=== PATIENT | female | born 1995 | race Caucasian/White ===

== ENCOUNTER → 2018-07-05 14:23 | Outpatient (CLI) | payer OTHER, SELFPAY ==
--- NOTE | 2018-07-05 14:26 | US_ITS ---
STUDY: ULTRASOUND BREAST - RIGHT REASON FOR EXAM: Female, 23 years old. Palpable lump in the right breast. TECHNIQUE: Axial and longitudinal images of the RIGHT breast were performed with a high resolution ultrasound transducer. COMPARISON: None. FINDINGS: RIGHT Breast: The upper half of the breast was examined by ultrasound. There is homogeneous glandular tissue. No solid or cystic mass lesion is seen. US/Breast Complete Unilateral IMPRESSION: Unremarkable sonographic examination of the breast. ASSESSMENT CATEGORY: BIRADS Category 1: Negative. A letter regarding these results will be sent to the patient by the facility within 30 days. Electronically Signed: Ga Farfan MD at 15:54 EST , Service support ,
== END ==
PROVIDERS: Family Provider Registered Nurse; PCP Registered Nurse; Referring Provider Registered Nurse; Visit Provider Registered Nurse
DX: N63.0 Unspecified lump in unspecified breast (principal); Z80.3 Family history of malignant neoplasm of breast
CPT/HCPCS: 76641

== ENCOUNTER 2021-12-27 07:47 | Inpatient (IN) | payer BC, SELFPAY ==
[2021-12-27] VITALS (21 sets, daily range): BP systolic 112–134; BP diastolic 56–88; PULSE 63–101; RESP 16–18; TEMP 36.1–37.4; O2SAT 98–100; BMI 24.9
[2021-12-27] MEDS: Lactated Ringers 1,000 ML 50 ML IV (08:05)
[2021-12-27 08:32] LABS: Absolute Lymphocyte Count 1.12 X10^3/uL (0.83-4.51); Absolute Neutrophil Count 5.2 X10^3/uL (2.0-7.7); Basophil# 0.02 X10^3/uL; Basophil% 0.3 % (0-1); Eosinophil# 0.04 X10^3/uL; Eosinophils% 0.6 % (0-5); Hematocrit 36.3 % (37-47); Hemoglobin 11.9 g/dL (12.0-15.0); Lymphocyte # 1.12 X10^3/ul (0.83-4.51); Lymphocyte % 16.1 % (19-41); Mean Corp Hgb Conc 32.8 g/dL (32-36); Mean Corpuscular Hgb 31.6 pg (27.0-32.0); Mean Corpuscular Volume 96.3 fL (81-99); Mean Platelet Vol. 9.5 fl (6.2-12.0); Monocyte# 0.59 X10^3/uL; Monocyte% 8.5 % (0-10); NRBC Flagged by Analyzer 0 % (0-5); Neutrophil # 5.16 X10^3/uL (2.7-7.7); Neutrophil % 74.1 % (47-70); Platelet Count 157 K/mm3 (150-450); RBC Distribution Width CV 12.4 % (11.6-14.6); RBC Distribution Width SD 43.5 fl (35.1-43.9); Red Blood Count 3.77 M/mm3 (4.2-5.4)
--- NOTE | 2021-12-27 08:39 | HP.PCM.OB_ITS ---
HPI - General General Date of Admission: 12/27/21 Date of Service: 12/27/21 HPI Narrative ADAM YU, is a 26 F who presents with LOF and ctxs. Maternal Data Information Final ROSIE: 01/09/22 Gestational age: 38&1 PFSH PFS Medical History (Updated 12/27/21 @ 08:[address] Nena Dover MD) 38 weeks gestation of Medical History no medical history no medical history Allergy/AdvReac Type Severity Reaction Status Date / Time No Known Allergies Allergy Verified 12/27/21 08:04 Family History Mother Breast cancer Surgical History [place] teeth extracted Social History adopted: No household members: spouse housing: house number of children: 0 financial difficulty paying for basics: not applicable service: No current occupational status: previously employed current occupational exposures/hazards: No pets and animals: No history of recent travel: No sexually active: Yes do you think of yourself as: straight/heterosexual current gender identity: female Smoking Status: Never smoker alcohol intake: never substance use type: does not use well-balanced diet: daily or most days History Elective abortions Hx Para 0 Spontaneous abortions Hx # Term Pregnancies Ectopic pregnancies Hx # Pregnancies Multiple births # of living children NST FHR Rate Baby A Baseline: 140 Variability:: Moderate Accelerations:: 15 x 15 Decelerations:: None Uterine Activity:: Irregular, Q 3 minutes at times Vital Signs Vital Signs Vital Signs: 12/27/21 07:42 12/27/21 07:42 Pulse Rate 93 Blood Pressure 129/88 H BP Systolic 129 BP Diastolic 88 Weight Weight: 169 lb Body Mass Index (BMI) 24.9 Physical Exam Const alert and oriented x3 General Appearance: cooperative and comfortable Chest inspection of chest normal GI soft to palpation, non-tender and non-distended Inspection: gravid external exam normal Labs Labs Labs: Blood Type Pending Antibody Screen Pending Hct 36.3 % (37-47) L Hgb 11.9 g/dL (12.0-15.0) L See [facility] H&P Assessment & Plan (1) 38 weeks gestation of : COMMENT: 26yo @ 38&1 in labor PLAN: Admit to L&D Expectant management Pain - considering nitrous, declines epidural at this time GBS negative EFW - less than 4500g, patient with adequate pelvis COVID pending
--- NOTE | 2021-12-27 14:21 | OP.PCM_ITS ---
Maternal Data Information Final ROSIE: 01/09/22 Gestational age: 38&1 Vaginal Delivery Maternal Presentation Maternal Presentation: Active Labor Operative Information Date of Procedure: 12/27/21 Pre-Operative Diagnosis: (1) Labor (2) Maternal exhaustion Post-Operative Diagnosis: Same Surgery / Procedure Performed: Vacuum Assisted Vaginal Delivery Type of Anesthesia: Local with 1% Lidocaine Estimated Blood Loss: 400ml Findings Description of Procedure: Patient prepped & draped when C/C/+2. Patient had been intermittently assessed during her pushing for 3.5 hours and was making good progress but was becoming exhausted. Patient was verbally consented for a vacuum delivery. head position confirmed. Vacuum placed on the head and position of vacuum confirmed on the head. With 6 contractions the vacuum was used for good descent. There were no pop-offs. The vacuum was released & position re- confirmed on the head after each contraction. A 2nd degree episiotomy was cut after injecting lidocaine into the perineum. The patient then made good progress on her own and pushed well to deliver the head. head gently guided to allow delivery of anterior and posterior shoulders. No excess traction placed on head. Body delivered and 3VC clamped & cut in delayed fashion. Placenta delivered with gentle traction and good uterine tone obtai yazan. Presentation: OMARI Amniotic Membrane Rupture Type: Spontaneous Amniotic Fluid Description: Clear Placental Delivery Description: Expressed Placenta Disposition: [facility] Specimen(s) Removed: Placenta Cord Vessel Description: 3 Vessels Cord Entanglement: None Infant A Gender: Male (Sai) (1 minute): 8 (5 minute): 9 Delayed Cord Clamping: Yes Post Vaginal Delivery Medications Given After Delivery: IV Pitocin Episiotomy Description: Midline and 2nd degree (repaired with 3-0 vicryl) Laceration: None Complication Complications: None
[2021-12-27] MEDS: Lactated Ringers 1,000 ML 200 ML IV (15:11)
[2021-12-27] MEDS: Oxytocin 30 units/NS 500 ml 30 UNITS/500 ML IV.SOLN 334 UNITS IV (18:13)
[2021-12-27] MEDS: Ketorolac 30 MG/ML Syringe IV (19:12)
[2021-12-28] VITALS (11 sets, daily range): BP systolic 101–117; BP diastolic 58–74; PULSE 80–91; RESP 14–16; TEMP 36.7–37.1; O2SAT 98–99
[2021-12-28] MEDS: Ibuprofen 600 MG Tablet PO ×2 (08:03→21:55)
--- NOTE | 2021-12-28 09:06 | PN.OBGYN_ITS ---
Subjective Subjective Pt is doing well. She denies chest pain, shortness of breath, leg pain. She is ambulating and voiding without difficulty. Lochia is normal. She is breast- feeding and desires to work with today. She desires to stay another night. Objective Data Objective Data Vital Signs: Vital Signs Temp Pulse Resp BP Pulse Ox O2 Del Method 98.5 F 91 14 112/74 98 Room Air 12/28/21 07:45 12/28/21 07:47 12/28/21 07:45 12/28/21 07:47 12/28/21 07:47 12/28/21 07:45 Oxygen Delivery Method Room Air Weight: 169 lb Body Mass Index (BMI) 24.9 Intake & Output: Intake and Output for Last 24 Hours 12/26/21 12/27/21 12/28/21 23:59 23:59 23:59 Intake Total 2080.83 / 2080.83 Output Total 800 / 800 Balance 2080.83 / 2080.83 -800 / -800 Lab / Micro Data Result Diagrams: 12/27/21 08:03 Labs: Laboratory Results - last 24 hr 12/27/21 08:03: Blood Type A NEGATIVE, Antibody Screen TNP, Antibody Identification TNP 12/27/21 08:03: Antibody Screen NEGATIVE Micro: Microbiology 12/27/21 08:15 Nasal Secretion SARS-CoV-2 Antigen (Rapid) - Final Physical Exam Const alert and no apparent distress General Appearance: comfortable HEENT normocephalic Resp normal respiratory effort GI soft to palpation and non-tender GI Narrative: FF Extremity normal to inspection Assessment & Plan (1) Vacuum-assisted vaginal delivery: PLAN: She is doing well. Working on breast-feeding. Anticipate discharge tomorrow.
[2021-12-28] MEDS: Senna/Docusate Sodium 1 Tablet 2 TABLET PO (09:35)
[2021-12-28] MEDS: Acetaminophen 500 MG Tablet 1000 MG PO (14:13)
[2021-12-28] MEDS: Benzocaine/Lanolin/Aloe Vera 1 SPRAY EACH TOPICAL (21:55)
[2021-12-29 02:00] VITALS: BP 103/63; PULSE 69; RESP 18; TEMP 36.4; O2SAT 99
[2021-12-29 02:11] VITALS: BP 103/63; PULSE 65
[2021-12-29] MEDS: Acetaminophen 500 MG Tablet 1000 MG PO (06:45)
--- NOTE | 2021-12-29 08:06 | PCM.PN.OB ---
Subjective Subjective Patient seen at bedside. infant. Ambulating and voiding without difficulty. Pain is controlled with Motrin and Tylenol. Desires discharge home today. Objective Data Objective Data Vital Signs: Vital Signs Temp Pulse Resp BP Pulse Ox O2 Del Method 97.5 F L 65 18 103/63 99 Room Air 12/29/21 02:00 12/29/21 02:11 12/29/21 02:00 12/29/21 02:11 12/29/21 02:00 12/29/21 02:00 Oxygen Delivery Method Room Air Weight: 169 lb Body Mass Index (BMI) 24.9 Intake & Output: Intake and Output for Last 24 Hours 12/27/21 12/28/21 12/29/21 23:59 23:59 23:59 Intake Total 0.83 / 2079.83 Output Total 800 / 800 Balance 2079.83 / 2079.83 -800 / -800 Lab / Micro Data Result Diagrams: 12/27/21 08:03 Micro: Microbiology 12/27/21 08:15 Nasal Secretion SARS-CoV-2 Antigen (Rapid) - Final ROS Eyes Eyes: Denies blurry vision, change in vision or spots in vision ENT HEENT: Denies dizziness or headache(s) Cardiovascular Cardiovascular: Denies abdominal pain, chest pain or dyspnea Respiratory/Chest Respiratory/Chest: Denies cough, dyspnea, shortness of breath at rest or shortness of breath with exertion Gastrointestinal Gastrointestinal: Denies abdominal pain, diarrhea or vomiting Genitourinary Genitourinary: Denies change in urinary stream, difficulty urinating or dysuria Musculoskeletal Musculoskeletal: Reports none Integumentary Integumentary: Denies rash Neurologic Neurologic: Denies dizziness, headache(s), memory loss or weakness Physical Exam Const alert and no apparent distress General Appearance: comfortable HEENT normocephalic Resp normal respiratory effort GI soft to palpation and non-tender GI Narrative: FF Extremity normal to inspection Assessment & Plan (1) Vacuum-assisted vaginal delivery: PLAN: Plan PPD 2 VAVD Rotating ice and TUCKs to perineum Pain control support D/C home with follow up in office
--- NOTE | 2021-12-29 08:09 | DCINST_ITS ---
Discharge Instructions Diet Discharge Diet: No restrictions Activity Discharge Activity: Return to Normal Activity May resume sexual activity in: 6-8 weeks Weight Bearing Status: Weight bearing as tolerated Dressing / Incision Call your doctor if you observe: Fever of 101 or Higher, Inability to urinate, Using more than 1 pad per hour, Shortness of breath, Dizziness, Chest pain, Calf discomfort and Uncontrolled pain Follow Up Care Please Follow Up With: Nena Dover MD When: 2 weeks / 6 weeks in office Test Results: Test results from this visit will be discussed in further detail at your follow- up appointment, if applicable. Discharge Plan Admission Admit Date/Time: 12/27/21 07:47 Attending Provider: Nena Dover Primary Care Provider: Ishmael Castañeda Discharge Orders/Prescriptions Prescriptions: New acetaminophen 500 mg Tablet 1,000 mg PO Q6H PRN PRN (Reason: Pain 1-10 Or Fever) Qty: 0 0RF ibuprofen 600 mg Tablet 600 mg PO Q6H PRN PRN (Reason: Pain Score 1-3) Qty: 0 0RF Referrals / Follow Up: Ishmael Castañeda MD [Primary Care Provider] - Nena Dover MD [STAFF PHYSICIAN] - Disposition Disposition (needs filled in before D/C Order can be placed): Home, Self Care
[2021-12-29 08:28] VITALS: BP 115/76; PULSE 79; PULSE 83; O2SAT 100
[2021-12-29] MEDS: Ibuprofen 600 MG Tablet PO (08:36)
[2021-12-29] MEDS: Senna/Docusate Sodium 1 Tablet 2 TABLET PO (08:37)
[2021-12-29 08:55] VITALS: BP 115/76; PULSE 80; RESP 14; TEMP 36.4
[2021-12-29 14:35] VITALS: BP 122/78; PULSE 86
[2021-12-29 14:40] VITALS: BP 122/78; PULSE 86; RESP 16; TEMP 36.4
== END 2021-12-29 14:50 | disposition home or self-care (01) | DRG 807 ==
LOC: WPOUT 07:50 → WP 07:50
PROVIDERS: Admitting Provider Obstetrics & Gynecology; PCP Family Medicine; Visit Provider Obstetrics & Gynecology
DX: O75.81 Maternal exhaustion complicating labor and delivery (principal); Z37.0 Single live birth; O70.1 Second degree perineal laceration during delivery; Z3A.38 38 weeks gestation of pregnancy
CPT/HCPCS: 59025; 59050; 85025; 86850; 86900; 86901; 87426; 99218; J7120; G0378

== ENCOUNTER → 2022-01-14 | Outpatient (CLI) | payer BC, SELFPAY ==
[2022-01-16 10:29] LABS: Mucous, Urine 0 SEEN /hpf (<or=2+)
[2022-01-16 10:37] LABS: Color, Urine Yellow (Yellow); Glucose, Dipstick Normal (Normal); Ketone-Dipstick Negative (Negative); Leukocyte Esterase-Dipstick 500 /ul (Negative); Nitrite-Dipstick Negative (Negative); Occult Blood-Urine 250 /ul (Negative); Protein-Dipstick 30 mg/dl (Negative); Urine Bilirubin Dipstick Negative (Negative); Urine Clarity Sl. Cloudy (Clear); Urine Urobilinogen Normal (Normal)
[2022-01-16 10:44] LABS: Bacteria 1+ /hpf (None Seen); Red Blood Cells-Urine 25-50 SEEN /hpf (0-5); Squamous Epithelial Cells - UA 0-5 SEEN /hpf (5-10); White Blood Cells 25-50 SEEN /hpf (0-5)
== END | disposition home or self-care (01) ==
LOC: LABSPEC 01-16 10:17
PROVIDERS: PCP Family Medicine; Visit Provider Physician Assistant
DX: R30.9 Painful micturition, unspecified (principal)
CPT/HCPCS: 81001; 87077; 87086; 87088; 87186

== ENCOUNTER 2023-07-18 15:15 | Inpatient (IN) | payer BC, SELFPAY ==
[2023-07-18] VITALS (22 sets, daily range): BP systolic 107–132; BP diastolic 68–82; PULSE 82–104; RESP 16; TEMP 36.4–37.4; O2SAT 82–100; BMI 25.2
[2023-07-18] MEDS: Lactated Ringers 1,000 ML 100 ML IV (16:25)
[2023-07-18 16:35] LABS: Absolute Lymphocyte Count 1.37 X10^3/uL (0.83-4.51); Absolute Neutrophil Count 6.4 X10^3/uL (2.0-7.7); Basophil# 0.03 X10^3/uL; Basophil% 0.3 % (0-1); Eosinophil# 0.04 X10^3/uL; Eosinophils% 0.5 % (0-5); Hematocrit 33.9 % (37-47); Hemoglobin 10.8 g/dL (12.0-15.0); Lymphocyte # 1.37 X10^3/ul (0.83-4.51); Lymphocyte % 15.9 % (19-41); Mean Corp Hgb Conc 31.9 g/dL (32-36); Mean Corpuscular Hgb 28.1 pg (27.0-32.0); Mean Corpuscular Volume 88.3 fL (81-99); Mean Platelet Vol. 9.6 fl (6.2-12.0); Monocyte# 0.66 X10^3/uL; Monocyte% 7.7 % (0-10); NRBC Flagged by Analyzer 0 % (0-5); Neutrophil # 6.42 X10^3/uL (2.7-7.7); Neutrophil % 74.4 % (47-70); Platelet Count 195 K/mm3 (150-450); RBC Distribution Width CV 13.9 % (11.6-14.6); RBC Distribution Width SD 44.1 fl (35.1-43.9); Red Blood Count 3.84 M/mm3 (4.2-5.4); White Blood Count 8.6 K/mm3 (4.4-11.0)
--- NOTE | 2023-07-18 17:31 | PCM.HP.OB ---
HPI - General General Date of Admission: 07/18/23 HPI Narrative ADAM YU, is a 28 F at 39.3 weeks gestation who presents in spontaneous, active labor. Maternal Data Information ROSIE Calculator Estimated Delivery Date Method Current WG Current Estimate 07/22/23 Manual 39w 3d PFSH PFS Medical History (Updated 07/18/23 @ 17:34 by Kelsy Cook CNM) 38 weeks gestation of depression Vacuum-assisted vaginal delivery Home Medications docosahexaenoic acid 200 mg capsule ( DHA) mg PO 01/05/23 [History Last Taken 07/18/23] Allergy/AdvReac Type Severity Reaction Status Date / Time No Known Allergies Allergy Verified 07/18/23 15:56 Family History Mother Breast cancer Surgical History [place] teeth extracted Social History adopted: No household members: spouse housing: house number of children: 0 current occupational status: previously employed current occupational exposures/hazards: No pets and animals: No history of recent travel: No sexually active: Yes Smoking Status: Never smoker alcohol intake: never substance use type: does not use well-balanced diet: daily or most days History Elective abortions Hx Para 1 Spontaneous abortions Hx # Term Pregnancies Ectopic pregnancies Hx # Pregnancies Multiple births # of living children ROS Eyes Eyes: Denies blurry vision, change in vision or spots in vision ENT HEENT: Denies dizziness or headache(s) Cardiovascular Cardiovascular: Denies abdominal pain, chest pain or dyspnea Respiratory/Chest Respiratory/Chest: Denies cough, dyspnea, shortness of breath at rest or shortness of breath with exertion Gastrointestinal Gastrointestinal: Denies abdominal pain, diarrhea or vomiting Genitourinary Genitourinary: Denies change in urinary stream, difficulty urinating or dysuria Musculoskeletal Musculoskeletal: Reports none Integumentary Integumentary: Denies rash Neurologic Neurologic: Denies dizziness, headache(s), memory loss or weakness Psychiatric Psychiatric: Reports none Vital Signs Vital Signs Vital Signs: 07/18/23 16:07 07/18/23 16:07 07/18/23 16:07 Temperature Temperature Source Pulse Rate 82 Blood Pressure 121/79 H BP Systolic 121 BP Diastolic 79 Pulse Ox 82 07/18/23 16:07 07/18/23 16:07 07/18/23 16:30 Temperature 99.3 F H Temperature Source Temporal Pulse Rate 87 Blood Pressure BP Systolic BP Diastolic Pulse Ox 07/18/23 16:30 07/18/23 17:02 07/18/23 17:02 Temperature Temperature Source Pulse Rate 98 Blood Pressure BP Systolic BP Diastolic Pulse Ox 98 98 07/18/23 17:06 07/18/23 17:06 07/18/23 17:07 Temperature Temperature Source Pulse Rate 93 102 H Blood Pressure BP Systolic BP Diastolic Pulse Ox 90 07/18/23 17:07 07/18/23 17:23 07/18/23 17:23 Temperature Temperature Source Pulse Rate 104 H Blood Pressure BP Systolic BP Diastolic Pulse Ox 98 100 Weight Weight: 180 lb 8 oz Body Mass Index (BMI) 25.2 Physical Exam Const alert, oriented x3 and no apparent distress General Appearance: cooperative Orientation / Consciousness: awake Exam Limitations: no limitations HEENT normocephalic Head and Scalp: normal to inspection Eyes General Eye: normal appearance of both eyes Neck full ROM and no lymphadenopathy Lymph Lymphatic: no lymphadenopathy noted Chest inspection of chest normal Resp normal respiratory effort, normal air movement and clear to auscultation bilaterally Effort and Inspection: able to speak in complete sentences and symmetric chest movement Cardio regular rate and regular rhythm GI normal to inspection, nondistended, normoactive bowel sounds Manual OB Exam: presentation cephalic, dilated 7, effaced 90 and station -1 Back/Spine normal ROM Extremity full ROM and no calf tenderness Skin no rashes or lesions noted General Skin Exam: no breakdown Neuro oriented x3 and CN's II-XII intact bilaterally Psych mental status grossly normal and thought process normal Labs Labs Labs: Blood Type A NEGATIVE Antibody Screen NEGATIVE Hct 33.9 % (37-47) L Hgb 10.8 g/dL (12.0-15.0) L Syphilis Total Ab Pending GBS negative Assessment & Plan (1) 39 weeks gestation of : (2) Previous baby delivered by vacuum extraction: (3) Spontaneous onset of labor: (4) Active labor at term: (5) History of depression, currently : PLAN: Plan Admit to labor and delivery Routine labs CE /-1 AROM for clear fluid Patient desires unmedicated delivery Anticipate Dr. Jimenez notified of admission and plan of care
[2023-07-18 17:37] LABS: Syphilis Antibodies Non-reactive
[2023-07-18] MEDS: Oxytocin 15 Units/NS 250ml 15 UNITS/250 ML IV.SOLN 334 UNITS IV (18:26)
--- NOTE | 2023-07-18 18:55 | EX.PCM.OBRPT ---
Assessment & Plan (1) (spontaneous vaginal delivery): (2) Perineal laceration, second degree, delivered: (3) History of depression, currently : Maternal Data Information ROSIE Calculator Estimated Delivery Date Method Current WG Current Estimate 07/22/23 Manual 39w 3d Vaginal Delivery Maternal Presentation Maternal Presentation: Active Labor Maternal Presentation: at 39.3 weeks gestation that presented in spontaneous, active labor. Type of Induction: Amniotomy (Augmentation) Operative Information Date of Procedure: 07/18/23 Pre-Operative Diagnosis: Term gestation, spontaneous onset of labor Post-Operative Diagnosis: Same, Live male infant Surgery / Procedure Performed: Spontaneous Vaginal Delivery Type of Anesthesia: Local with 1% Lidocaine Estimated Blood Loss: 400 Time of Delivery: 18:23 Findings Description of Procedure: Patient having urge to push. In hands and knees position with maternal effort, head delivered followed by anterior shoulder and remainder of body. Compound presentation noted. Vigorous male passed through maternal legs and placed immediately skin to skin with patient. Nursing attended to . Patient repositioned in bed to lithotomy. 3 vessel cord was clamped and cut after delay by FOB. Cord blood collected. Pitocin IV started for active management of the third stage of labor. Placenta delivered spontaneously and intact. Second degree laceration repaired in usual fashion using 3-0 Vicryl Rapide after local anesthesia given. Patient tolerated well. Fundus is firm 2 below U. EBL 400 cc. APGARS 8/9. Patient and and infant bonding well at this time. Dr. Jimenez notified of delivery. Presentation: Vertex Amniotic Membrane Rupture Type: Artificial Time of Membrane Rupture: 172 Amniotic Fluid Description: Clear Placental Delivery Description: Spontaneous Placenta Disposition: [facility] Cord Vessel Description: 3 Vessels Cord Entanglement: None Infant A Gender: Male (1 minute): 8 (5 minute): 9 Delayed Cord Clamping: Yes Post Vaginal Delivery Medications Given After Delivery: IV Pitocin Episiotomy Description: None Laceration: 2nd degree Complication Complications: None
[2023-07-18] MEDS: Lidocaine 1% (20 ml mdv) 20 ML Vial INFILT (18:59)
--- OUTSIDE RECORDS SUMMARY | 2023-07-18 18:59 | XMS RPT_ITS | CCD ---
Author Name Unknown Address [address] [place] [address] Organization [facility] Care Team Providers Care Test Department Helper Name Role Phone Unavailable Primary Care Provider Unavailabl e Pcp, No Primary Care Provider Unavailabl e Unavailable Primary Care Provider Unavailonel e Garry MAZA, Anju [place] Primary Care Provider ANJU KOENIG Attending Unavailable ANJU KOENIG Primary Care Unavailable FREDERICK MARTIN Attending Unavail able RONALD NEIL Attending Unavailable KALEY GREY Referring Unavailable RONALD NEIL Attending Unavailable KELSY DIGGS Referring Unavailable FAMILIA EAMON Referring Unavailable FAMILIA, EAMON Attending Unavailable FAMILIA, EAMON Referring Unavailable FAMILIA, EAMON Referring Unavailable FAMILIA, EAMON Attending Unavailable SHONNA AGUILAR Attending Unavailable FAMILIA, EAMON Attending Unavailable KELSY DIGGS Referring Unavailable QUE, KARMON Referring Unavailable KADE LEACH Attending Unavailable FAMILIA, EAMON Attending Unavailable PLOTKELSY KING Referring Unavailable KALEY GREY Attending Unavailable FAMILIA, EAMON Attending Unavailable RONALD NEIL Attending Unavailable FREDERICK MARTIN Attending Unavail able FAMILIA EAMON Referring Unavailable KALEY GREY Attending Unavailable FAMILIA EAMON Attending Unavailable FAMILIA, EAMON Attending Unavailable Medications Current Medications Medication Drug Class(es) Dates Sig (Normalized) Sig (Original) clindamycin 300 mg oral capsule (1 source) Lincosamide Antibacterial Start: 01-09-2023 End: 01-16-2023 take 1 capsule by mouth twice daily clindamycin (CLEOCIN) 300 mg capsule Take 1 capsule by mouth twice daily for 7 days. 14 capsule 0 01/09/2023 01/16/2023 Active Completed/Discontinued Medications Medication Drug Class(es) Dates Sig (Normalized) Sig (Original) aspirin 81 mg delayed release oral tablet (5 sources) Platelet Aggregation Inhibitor, Nonsteroidal Anti-inflammatory Drug Start: 12-19-2022 End: 02-22-2023 take 2 tablets by mouth once daily aspirin, enteric coated (ASPIRIN, ENTERIC COATED) 81 mg EC tablet Take 2 tablets by mouth once daily. 30 tablet 0 12/19/2022 02/22/2023 Discontinued Problems Active Problems Problem Classification Problem Date Documented Date Episodic/Chronic Genitourinary symptoms and ill-defined conditions (2 sources) Dysuria; Translations: [Dysuria] Onset: 07-06-2023 Episodic Inflammatory diseases of female pelvic organs (1 source) Bacterial vaginosis; Translations: [Acute vaginitis] 01-09-2023 Episodic Mycoses (4 sources) Candidiasis of mouth; Translations: [Candidal stomatitis] Onset: 01-29-2023 01-29-2023 Episodic Other complications of ; puerperium affecting management of mother (3 sources) Patient encounter status; Translations: [Encounter for repeat ultrasound of pyelectasis, antepartum, single or unspecified fetus] 02-22-2023 Episodic Other complications of (2 sources) Central nervous system malformation in fetus affecting obstetrical care; Translations: [Maternal care for (suspected) central nervous system malformation in fetus, not applicable or unspecified] Episodic Other complications of (2 sources) ultrasound scan abnormal; Translations: [Maternal care for (suspected) central nervous system malformation in fetus, not applicable or unspecified] Episodic Other complications of (1 source) choroid plexus cyst; Translations: [Maternal care for (suspected) central nervous system malformation in fetus, not applicable or unspecified] Episodic Other complications of (1 source) Reduced movement; Translations: [Decreased movements, third trimester, not applicable or unspecified] Episodic Other complications of (1 source) Uterine size for dates discrepancy; Translations: [Uterine size-date discrepancy, third trimester] Episodic Other female genital disorders (1 source) Vaginal hymen finding; Translations: [Other specified noninflammatory disorders of vagina] Episodic Other female genital disorders (1 source) Old vaginal laceration; Translations: [Other specified noninflammatory disorders of vagina] Episodic Other female genital disorders (1 source) Vaginal discharge; Translations: [Other specified noninflammatory disorders of vagina] 12-19-2022 Episodic Other female genital disorders (1 source) Disorder of uterine cervix; Translations: [Other specified noninflammatory disorders of cervix uteri] 12-19-2022 Episodic Other female genital disorders (1 source) Bloodstained vaginal discharge; Translations: [Other specified noninflammatory disorders of vagina] 01-09-2023 Episodic Other and delivery including normal (20 sources) Normal ; Translations: [Encounter for supervision of normal first , second trimester] Onset: 08-24-2021 08-24-2021 Episodic Other skin disorders (1 source) Finding of pelvic region of trunk; Translations: [Granulomatous disorder of the skin and subcutaneous tissue, unspecified] Episodic Otitis media and related conditions (4 sources) Dysfunction of right eustachian tube; Translations: [Other specified disorders of Eustachian tube, right ear] Onset: 01-29-2023 01-29-2023 Episodic Residual codes; unclassified (1 source) Gestation period, 23 weeks; Translations: [23 weeks gestation of ] Episodic Residual codes; unclassified (2 sources) Gestation period, 28 weeks; Translations: [28 weeks gestation of ] Episodic Residual codes; unclassified (1 source) Gestation period, 30 weeks; Translations: [30 weeks gestation of ] Episodic Residual codes; unclassified (2 sources) Gestation period, 36 weeks; Translations: [36 weeks gestation of ] Episodic Residual codes; unclassified (1 source) Gestation period, 37 weeks; Translations: [37 weeks gestation of ] Episodic Residual codes; unclassified (1 source) Gestation period, 38 weeks; Translations: [38 weeks gestation of ] Episodic Residual codes; unclassified (1 source) Gestation period, 9 weeks; Translations: [9 weeks gestation of ] 12-19-2022 Episodic Residual codes; unclassified (1 source) Gestation period, 12 weeks; Translations: [12 weeks gestation of ] 01-09-2023 Episodic Residual codes; unclassified (1 source) Gestation period, 14 weeks; Translations: [14 weeks gestation of ] 01-23-2023 Episodic Residual codes; unclassified (2 sources) Gestation period, 18 weeks; Translations: [18 weeks gestation of ] 02-22-2023 Episodic Residual codes; unclassified (1 source) Gestation period, 22 weeks; Translations: [22 weeks gestation of ] 03-22-2023 Episodic Residual codes; unclassified (1 source) Gestation period, 26 weeks; Translations: [26 weeks gestation of ] 04-16-2023 Episodic Residual codes; unclassified (1 source) Gestation period, 31 weeks; Translations: [31 weeks gestation of ] 05-22-2023 Episodic Residual codes; unclassified (1 source) 26 weeks gestation of ; Translations: [26 weeks gestation of ] Onset: 05-01-2023 Episodic Spondylosis; intervertebral disc disorders; other back problems (1 source) Acute low back pain; Translations: [Acute left-sided low back pain without sciatica] Episodic Unclassified (1 source) Encounter for repeat ultrasound of pyelectasis, antepartum, single or unspecified fetus; Translations: [Encounter for repeat ultrasound of pyelectasis, antepartum, single or unspecified fetus] Onset: 05-01-2023 Past or Other Problems Problem Classification Problem Date Documented Date Episodic/Chronic Other complications of (20 sources) RhD negative; Translations: [Other specified related conditions, unspecified trimester] Onset: 06-07-2021 06-07-2021 Episodic Other complications of (15 sources) Spotting per vagina in ; Translations: [Spotting complicating , first trimester] Onset: 12-14-2022 Episodic Other complications of (15 sources) Finding of pattern of ; Translations: [Supervision of other high risk pregnancies, unspecified trimester] Onset: 12-14-2022 Episodic Other complications of (13 sources) H/O: depression; Translations: [History of depression, currently ] Onset: 12-14-2022 Episodic Other complications of (1 source) Spotting complicating , first trimester; Translations: [Spotting complicating , first trimester] Onset: 11-30-2022 Episodic Other female genital disorders (1 source) Other specified noninflammatory disorders of vagina; Translations: [Vaginal discharge] Onset: 12-19-2022 Episodic Other female genital disorders (1 source) Other specified noninflammatory disorders of cervix uteri; Translations: [Friable cervix] Onset: 12-19-2022 Episodic Other skin disorders (13 sources) Eruption; Translations: [Rash and other nonspecific skin eruption] Onset: 12-14-2022 Episodic Residual codes; unclassified (13 sources) History of episiotomy; Translations: [Other specified postprocedural states] Onset: 12-14-2022 Episodic Residual codes; unclassified (13 sources) FH: Congenital heart disease; Translations: [Family history of other congenital malformations, deformations and chromosomal abnormalities] Onset: 12-14-2022 Episodic Residual codes; unclassified (1 source) 9 weeks gestation of ; Translations: [9 weeks gestation of ] Onset: 12-19-2022 Episodic Residual codes; unclassified (1 source) Unspecified blood type, Rh negative; Translations: [Blood type, Rh negative] Onset: 12-19-2022 Episodic Results Test Name Value Interpretation Reference Range Facil ity Vital Signs Date Time Vital Sign Value Performing Clinician Faci litelliot 05-22-2023 13:01-0500 Body weight 76.11 kg Eamon Wilson APRN.CNM Work Phone: [facility] 05-22-2023 13:01-0500 Diastolic blood pressure 60 mm[Hg] Eamon Wilson APRN.CNM Work Phone: [facility] 05-22-2023 13:01-0500 Systolic blood pressure 104 mm[Hg] Eamon Wilson APRN.CNM Work Phone: [facility] 05-01-2023 10:22-0500 Body weight 73.48 kg Ronald Neil MD Work Phone: [facility] 05-01-2023 10:22-0500 Diastolic blood pressure 76 mm[Hg] Ronald Neil MD Work Phone: [facility] 05-01-2023 10:22-0500 Systolic blood pressure 124 mm[Hg] Ronald Neil MD Work Phone: [facility] 05-01-2023 10:02-0500 Body weight 73.57 kg Kade Leach MD Work Phone: [facility] 05-01-2023 10:02-0500 Diastolic blood pressure 76 mm[Hg] Kade Leach MD Work Phone: [facility] 05-01-2023 10:02-0500 Systolic blood pressure 124 mm[Hg] Kade Leach MD Work Phone: [facility] 04-16-2023 11:290500 Body weight 72.12 kg Eamon Familia FAMILY ENGAGEMENT SPECIALIST.CNM Work Phone: [facility] 04-16-2023 11:29-0500 Diastolic blood pressure 62 mm[Hg] Eamon Wilson FAMILY ENGAGEMENT SPECIALIST.CNM Work Phone: [facility] 04-16-2023 11:29-0500 Systolic blood pressure 108 mm[Hg] Eamon Wilson FAMILY ENGAGEMENT SPECIALIST.CNM Work Phone: [facility] 03-22-2023 [id number] Body weight 68.86 kg Shonna Aguilar MD Work Phone: [facility] 03-22-2023 11:23-0400 Diastolic blood pressure 62 mm[Hg] Shonna Aguilar MD Work Phone: [facility] 03-22-2023 11:23-0400 Systolic blood pressure 100 mm[Hg] Shonna Aguilar MD Work Phone: [facility] 02-22-2023 [id number] Body weight 66.13 kg Kaley Grey MD Work Phone: [facility] 02-22-2023 10:22-0400 Diastolic blood pressure 70 mm[Hg] Kaley Grey MD Work Phone: [facility] 02-22-2023 10:22-0400 Systolic blood pressure 102 mm[Hg] Kaley Grey MD Work Phone: [facility] 01-29-2023 13:12-0400 Body height 174 cm Anju Koenig MD Work Phone: [facility] 01-29-2023 13:12-0400 Body mass index (BMI) [Ratio] 21.19 kg/m2 Anju Koenig MD Work Phone: [facility] 01-29-2023 13:12-0400 Body weight 64.14 kg Anju Koenig MD Work Phone: [facility] 01-29-2023 13:12-0400 Diastolic blood pressure 81 mm[Hg] Anju Koenig MD Work Phone: [facility] 01-29-2023 13:12-0400 Heart rate 82 /min Anju Koenig MD Work Phone: [facility] 01-29-2023 13:12-0400 SaO2% (BldA) [Mass fraction] 99 % Anju Koenig MD Work Phone: [facility] 01-29-2023 13:12-0400 Systolic blood pressure 126 mm[Hg] Anju Koenig MD Work Phone: [facility] 01-23-2023 08:59-0400 Body weight 63.05 kg Frederick Sheriff MD Work Phone: [facility] 01-23-2023 08:59-0400 Diastolic blood pressure 62 mm[Hg] Frederick Sheriff MD Work Phone: [facility] 01-23-2023 08:59-0400 Systolic blood pressure 112 mm[Hg] Frederick Sheriff MD Work Phone: [facility] 01-09-2023 11:48-0400 Body weight 62.14 kg Ronald Neil MD Work Phone: [facility] 01-09-2023 11:48-0400 Diastolic blood pressure 70 mm[Hg] Ronald Neil MD Work Phone: [facility] 01-09-2023 11:48-0400 Systolic blood pressure 106 mm[Hg] Ronald Neil MD Work Phone: [facility] 12-19-2022 08:51-0400 Body height 176.5 cm Eamon Wilson APRN.CNM Work Phone: [facility] 12-19-2022 08:51-0400 Body weight 62.78 kg Eamon Wilson APRN.CNMirza Work Phone: [facility] 12-19-2022 08:51-0400 Diastolic blood pressure 68 mm[Hg] Eamon Wilson FAMILY ENGAGEMENT SPECIALIST.CNM Work Phone: [facility] 12-19-2022 08:51-0400 Systolic blood pressure 102 mm[Hg] Eamon Wilson FAMILY ENGAGEMENT SPECIALIST.CNM Work Phone: [facility] 04-18-2022 08:15-0500 Body weight 65.77 kg Frederick Sheriff MD Work Phone: [facility] 04-18-2022 08:15-0500 Diastolic blood pressure 72 mm[Hg] Frederick Sheriff MD Work Phone: [facility] 04-18-2022 08:15-0500 Systolic blood pressure 120 mm[Hg] Frederick Sheriff MD Work Phone: [facility] 04-06-2022 14:37-0400 Body weight 65.32 kg Kelsy Suhasvineet FAMILY ENGAGEMENT SPECIALIST.CNM Work Phone: [facility] 04-06-2022 14:37-0400 Diastolic blood pressure 78 mm[Hg] Kelsy Plotts FAMILY ENGAGEMENT SPECIALIST.CNM Work Phone: [facility] 04-06-2022 14:37-0400 Systolic blood pressure 128 mm[Hg] Kelsy Plotts FAMILY ENGAGEMENT SPECIALIST.CNM Work Phone: [facility] 02-17-2022 14:55-0400 Body weight 66.68 kg Shonna Aguilar MD Work Phone: [facility] 02-17-2022 14:55-0400 Diastolic blood pressure 70 mm[Hg] Shonna Aguilar MD Work Phone: [facility] 02-17-2022 14:55-0400 Systolic blood pressure 108 mm[Hg] Shonna Aguilar MD Work Phone: [facility] 01-13-2022 11:06-0400 Body weight 66.68 kg Frederick Sheriff MD Work Phone: [facility] 01-13-2022 11:06-0400 Diastolic blood pressure 60 mm[Hg] Frederick Sheriff MD Work Phone: [facility] 01-13-2022 11:06-0400 Systolic blood pressure 104 mm[Hg] Frederick Sheriff MD Work Phone: [facility] 12-26-2021 09:03-0400 Body weight 76.66 kg Eamon Wilson FAMILY ENGAGEMENT SPECIALIST.CNM Work Phone: [facility] 12-26-2021 09:03-0400 Diastolic blood pressure 78 mm[Hg] Eamon Wilson FAMILY ENGAGEMENT SPECIALIST.CNM Work Phone: [facility] 12-26-2021 09:03-0400 Systolic blood pressure 124 mm[Hg] Eamon Wilson FAMILY ENGAGEMENT SPECIALIST.CNM Work Phone: [facility] 12-19-2021 08:14-0400 Body weight 75.75 kg Kelsy Suhasvineet FAMILY ENGAGEMENT SPECIALIST.CNM Work Phone: [facility] 12-19-2021 08:14-0400 Diastolic blood pressure 70 mm[Hg] Kelsy Plotts FAMILY ENGAGEMENT SPECIALIST.CNM Work Phone: [facility] 12-19-2021 08:14-0400 Systolic blood pressure 116 mm[Hg] Kelsy Plotts FAMILY ENGAGEMENT SPECIALIST.CNM Work Phone: [facility] 12-13-2021 13:01-0400 Body weight 75.3 kg Aliyn Grissom MD Work Phone: [facility] 12-13-2021 13:01-0400 Diastolic blood pressure 74 mm[Hg] Ailyn Grissom MD Work Phone: [facility] 12-13-2021 13:01-0400 Systolic blood pressure 112 mm[Hg] Ailyn Grissom MD Work Phone: [facility] 11-02-2021 10:02-0400 Body weight 72.48 kg Shonna Aguilar MD Work Phone: [facility] 11-02-2021 10:02-0400 Diastolic blood pressure 70 mm[Hg] Shonna Aguilar MD Work Phone: [facility] 11-02-2021 10:02-0400 Systolic blood pressure 110 mm[Hg] Shonna Aguilar MD Work Phone: [facility] 10-19-2021 08:33-0400 Body weight 72.58 kg Shonna Aguilar MD Work Phone: [facility] 10-19-2021 08:33-0400 Diastolic blood pressure 70 mm[Hg] Shonna Aguilar MD Work Phone: [facility] 10-19-2021 08:33-0400 Systolic blood pressure 116 mm[Hg] Shonna Aguilar MD Work Phone: [facility] 09-14-2021 09:00-0400 Body weight 68.95 kg Eamon Wilson FAMILY ENGAGEMENT SPECIALIST.CNM Work Phone: [facility] 09-14-2021 09:00-0400 Diastolic blood pressure 72 mm[Hg] Eamon Wilson FAMILY ENGAGEMENT SPECIALIST.CNM Work Phone: [facility] 09-14-2021 09:00-0400 Systolic blood pressure 122 mm[Hg] Eamon Wilson FAMILY ENGAGEMENT SPECIALIST.CNM Work Phone: [facility] Encounters Encounter Date Encounter Type Care Provider Facility Start: 07-10-2023 End: 07-10-2023 ambulatory EAMON WILSON Facility:[facility] Start: 07-06-2023 End: 07-07-2023 ambulatory EAMON WILSON Facility:[facility] Start: 07-03-2023 End: 07-03-2023 ambulatory RONALD NEIL Facility:[facility] Start: 06-26-2023 End: 06-26-2023 ambulatory EAMON WILSON Facility:[facility] Start: 06-12-2023 End: 06-12-2023 ambulatory KALEY GREY Facility:[facility] Start: 06-06-2023 End: 06-06-2023 ambulatory EAMON WILSON Facility:[facility] Start: 05-22-2023 End: 05-22-2023 ambulatory EAMON WILSON Facility:[facility] Start: 05-22-2023 End: 05-22-2023 Patient encounter procedure Eamon Wilson APRN.CNM Work Phone: OB/Gynecology Procedures Date Procedure Procedure Detail Performing Clinician Start: 05-22-2023 URINE OB DIP B/O Ulices juno Familia RODRÍGUEZ Work Phone: Start: 05-01-2023 Antibody screen FREDERICK SHERIFF Plan of Treatment Date Care Activity Detail Author Start: 02-27-2046 Zoster Vaccines (1 of 2) Zoster Vaccines (1 of 2) [facility] Start: 03-04-2025 DTaP/Tdap/Td Vaccines (2 - Td or Tdap) DTaP/Tdap/Td Vaccines (2 - Td or Tdap) [facility] Start: 03-04-2025 Urine microalbumin profile DTaP,Tdap,Td Vaccine (2 - Td or Tdap) [facility] Start: 06-06-2024 PAP TESTING PAP TESTING [facility] Start: 06-06-2024 Screening for malignant neoplasm of cervix Pap Testing [facility] Start: 01-31-2024 End: 01-31-2024 Patient encounter procedure 01/31/2024 8:30 AM EDT Office Visit [facility] [address] [place] [id number] Anju Koenig MD [address] [place] [address] [phone] [facility] Start: 01-30-2024 Depression Screening Depression Screening [facility] Start: 05-27-2023 RSV Vaccine (1 - Risk 1-dose series) RSV Vaccine (1 - Risk 1-dose series) [facility] Start: 04-16-2023 End: 07-16-2023 CBC W Auto Differential panel - Blood CBC + DIFF Lab Routine 26 weeks gestation of Encounter for supervision of other normal in second trimester Expected: 04/16/2023, Expires: 07/16/2023 [facility] Work Phone: Immunizations Immunization Date Immunization Notes Care Provider Fa [facility] 05-01-2023 RHO(D) immune globul in- IV or IM Kade Leach MD Work Phone: [facility] 12-19-2022 RHO(D) immune globul in- IV or IM Eamon Wilson APRN.CN Work Phone: [facility] Work Phone: 10-19-2021 RHO(D) immune globul in- IV or IM Shonna Aguilar MD Work Phone: [facility] 09-07-2015 hepatitis B vaccine, pediatric or pediatric/adolescent dosage Anju Koenig MD Work Phone: [facility] 04-01-2015 hepatitis B vaccine, pediatric or pediatric/adolescent dosage Anju Koenig MD Work Phone: [facility] 03-04-2015 hepatitis B vaccine, pediatric or pediatric/adolescent dosage Anju Koenig MD Work Phone: [facility] 03-04-2015 tetanus toxoid, redu yeyo diphtheria toxoid, and acellular pertussis vaccine, adsorbed Anju Koenig MD Work Phone: [facility] Payers Date Payer Category Payer Unknown [employer] PPO OOS [id number] 2021-Present [phone] [facility] [id number] [place] [address] PPO [id number] 2021 Unknown [id number] 2021 Unknown [id number] Social History Date Type Detail Facility Start: 05-12-2021 End: 02-17-2022 Tobacco smoking status NHIS Never smoked tobacco [facility] Work Phone: Start: 05-12-2021 End: 02-17-2022 Tobacco use and exposure Smokeless tobacco non-user [facility] Work Phone: Start: 09-14-2021 End: 05-22-2023 Alcohol intake Lifetime non-drinker (finding) [facility] Start: 05-12-2021 History SDOH Alcohol Frequency 1 [facility] Start: 05-12-2021 Education 21 [facility] Start: 04-18-2021 [facility] Start: 1995 Sex Assigned At Not on file [facility] Start: 09-04-2021 End: 01-29-2023 Exposure to SARS-CoV-2 (event) Not sure [facility] Work Phone: Start: 12-14-2022 End: 12-19-2022 History of Social function [facility] Start: 12-14-2022 End: 12-19-2022 Tobacco use panel [facility] The thought of liliya carlin myself has occurred to me Never [facility] National Score (1-10 0), lower number is lower risk 56 [facility] Start: 01-29-2023 Alcohol intake Current non-dr bottle labeler of alcohol (finding) [facility] Health Goals Date Patient Goal Desired Activity /State Personal health goal Clinical Notes 08-29-2021 to 05-22-2023 Quick Notes - Eamon iWlson APRN.CNM - 05/22/2023 1:07 PM ESTPatient InstructionsCandi Whitley RN - 05/01/2023 11:13 AM ESTPatient InstructionsPatient InstructionsPatient Instructions Note Date & Type Note Facility 05-22-2023 Miscellaneous Notes SJ-S: [place] Torres is a 28 year old female who presents at 31w2d with ROSIE:07/22/2023, by Last Menstrual Period for a routine visit. Good FM. Denies headache, visual changes, chest pain, shortness of breath, vaginal bleeding, leakage of fluid, or dysuria. Feeling well, occasional feelings of reflux/ discomfort in chest-when laying down at bedtime. Relief by eating yogurt. O: See flow sheet Gen: No apparent distress Abd: Gravid, nontender TWG 28 lb, S=D ASSESSMENT 1. Encounter for supervision of other normal in third trimester 2. 31 weeks gestation of P: 1) PTL precautions reviewed and when to call 2) RTO 4 weeks 3) No further pylectasis or follow up 4) May try Tums, Pepcid,almonds, almond milk if reflux persists. Not eat within 30 min of bedtime. 5) RSV vaccination discussed. Is considering between 32-36 wk. 6) Encouraged to begin perineal massage at episiotomy site in preparation for labor beginning at 34 weeks. 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 I have re-performed the HPI, Physical Examination, Assessment and Plan. Eamon Wilson APRN.CNM documented in this encounter [facility] [facility] Instructions Roman Chapman Cma - 05/22/2023 1:00 PM EST SEQUENTIAL SCREENINGS The [facility] offers sequential screenings for women who are interested in screenings for chromosomal abnormalities and certain defects during a . The sequential screen combines ultrasound and blood tests to determine the risk of chromosomal abnormalities, including Down's Syndrome (Trisomy 21) and Trisomy 18, as well as open neural tube defects including spina bifida. Ultrasound examination is performed between 11 weeks and 13 weeks gestational age. Blood tests are drawn after the ultrasound and again later in the between 15 and 21 weeks gestational age. Please let your physician know if you are interested in this testing. It will require an appointment with our chemical treatment plant technician. This is not an ultrasound performed by a physician in our office during a routine visit. SIGNS AND SYMPTOMS OF LABOR 1. Contractions every 10 minutes or more often 2. Clear, pink, or brownish fluid (water) leaking from vagina 3. Feeling that baby is pushing down, pressure 4. Low, dull backache 5. Cramps that feel like a period 6. Cramps with or without diarrhea If you notice any of the above symptoms, contact our office at [phone] and ask to speak with a nurse. After hours, you can call doctors registry at [phone] OR call [facility] at [phone] and ask to have the doctor electronic calibration technician paged. If you consider this an emergency, dial 9-1- or go to your nearest emergency department. NEED HELP? Are you dealing with a violent or abusive relationship? Are you a victim of rape or sexual assult? Call [facility] ([place]) 24 hour Crisis Hotline: 478.169.2496 or 134-101-7587. MANUAL Your Guide to a Healthy manual is now on-line. Visit [email or web address] [email or web address] to download your free copy documented in this encounter [facility] 05-01-2023 Nurse Note The patient is here for an injection of Rhogam. Dose: 300 mcg Amount wasted: none. Route: Intramuscular Site: right upper quadrant gluteus Client Experience Specialist: CSL Behring See MAR The date due for the next injection is n/a Candi Whitley RN documented in this encounter [facility] 05-01-2023 Miscellaneous Notes RR- VB No. LOF No. CTXS No. Movement: present. Other c/o: No. Medication list reviewed. Physical Exam See Flow Sheet Abd: soft, nontender, gravid Ext: edema: Trace A/P 28w2d Estimated Date of Delivery: 07/22/23 Labs: 28 week labs f/u scan done today, 84%. was f/u for pylectasis. considering tdap next vsiit declines flu vaccine f/u in 2-3 weeks or prn Ronald Neil M.D. documented in this encounter [facility] 05-01-2023 Brian Chanel Ma - 05/01/2023 9:46 AM EST SEQUENTIAL SCREENINGS The [facility] offers sequential screenings for women who are interested in screenings for chromosomal abnormalities and certain defects during a . The sequential screen combines ultrasound and blood tests to determine the risk of chromosomal abnormalities, including Down's Syndrome (Trisomy 21) and Trisomy 18, as well as open neural tube defects including spina bifida. Ultrasound examination is performed between 11 weeks and 13 weeks gestational age. Blood tests are drawn after the ultrasound and again later in the between 15 and 21 weeks gestational age. Please let your physician know if you are interested in this testing. It will require an appointment with our chemical treatment plant technician. This is not an ultrasound performed by a physician in our office during a routine visit. SIGNS AND SYMPTOMS OF LABOR 1. Contractions every 10 minutes or more often 2. Clear, pink, or brownish fluid (water) leaking from vagina 3. Feeling that baby is pushing down, pressure 4. Low, dull backache 5. Cramps that feel like a period 6. Cramps with or without diarrhea If you notice any of the above symptoms, contact our office at [phone] and ask to speak with a nurse. After hours, you can call doctors registry at [phone] OR call [facility] at [phone] and ask to have the doctor electronic calibration technician paged. If you consider this an emergency, dial 8-7-2 or go to your nearest emergency department. NEED HELP? Are you dealing with a violent or abusive relationship? Are you a victim of rape or sexual assult? Call [facility] ([place]) 24 hour Crisis Hotline: 697.928.5474 or 022-901-9924. MANUAL Your Guide to a Healthy manual is now on-line. Visit [email or web address] [email or web address] to download your free copy documented in this encounter [facility] 04-16-2023 Miscellaneous Notes SJ-S: Indiana Torres is a 28 year old female who presents at 26w1d with ROSIE:07/22/2023, by Last Menstrual Period for a routine visit. Good FM. Denies headache, visual changes, chest pain, shortness of breath, vaginal bleeding, leakage of fluid, or dysuria. Feeling well, no complaints. O: See flow sheet Gen: No apparent distress Abd: Gravid, nontender ASSESSMENT/PLAN: 1. 26 weeks gestation of 2. Encounter for supervision of other normal in second trimester P: 1) PTL precautions reviewed and when to call 2) RTO 3) Rhogam next visit 4) US for follow pylectasis 5) Compression stockings for varicosities Eamon Wilson APRN.CNM documented in this encounter [facility] 04-16-2023 Instructions Eamon Wilson APRN.CNM - 04/16/2023 11:29 AM EST Magnesium citrate 400mg by mouth at bedtime SEQUENTIAL SCREENINGS [facility] offers sequential screenings for women who are interested in screenings for chromosomal abnormalities and certain defects during a . The sequential screen combines ultrasound and blood tests to determine the risk of chromosomal abnormalities, including Down's Syndrome (Trisomy 21) and Trisomy 18, as well as open neural tube defects including spina bifida. Ultrasound examination is performed between 11 weeks and 13 weeks gestational age. Blood tests are drawn after the ultrasound and again later in the between 15 and 21 weeks gestational age. Please let your physician know if you are interested in this testing. It will require an appointment with our chemical treatment plant technician. This is not an ultrasound performed by a physician in our office during a routine visit. SIGNS AND SYMPTOMS OF LABOR 1. Contractions every 10 minutes or more often 2. Clear, pink, or brownish fluid (water) leaking from vagina 3. Feeling that baby is pushing down, pressure 4. Low, dull backache 5. Cramps that feel like a period 6. Cramps with or without diarrhea If you notice any of the above symptoms, contact our office at [phone] and ask to speak with a nurse. After hours, you can call doctors registry at [phone] OR call [facility] at [phone] and ask to have the doctor electronic calibration technician paged. If you consider this an emergency, dial 9-0 or go to your nearest emergency department. NEED HELP? Are you dealing with a violent or abusive relationship? Are you a victim of rape or sexual assult? Call [facility] ([place]) 24 hour Crisis Hotline: 829.219.4484 or 668-116-7684. MANUAL Your Guide to a Healthy manual is now on-line. Visit [email or web address] [email or web address] to download your free copy documented in this encounter [facility] 03-22-2023 Miscellaneous Notes SW- Some abdominal discomfort. No vb, lof. +FM. Discussed reasons to call and MSK pain in . RTO 4 wks. Shonna Aguilar DO documented in this encounter [facility] 03-22-2023 Instructions Yolis Harris MA - 03/22/2023 11:18 AM EDT SEQUENTIAL SCREENINGS The [facility] offers sequential screenings for women who are interested in screenings for chromosomal abnormalities and certain defects during a . The sequential screen combines ultrasound and blood tests to determine the risk of chromosomal abnormalities, including Down's Syndrome (Trisomy 21) and Trisomy 18, as well as open neural tube defects including spina bifida. Ultrasound examination is performed between 11 weeks and 13 weeks gestational age. Blood tests are drawn after the ultrasound and again later in the between 15 and 21 weeks gestational age. Please let your physician know if you are interested in this testing. It will require an appointment with our chemical treatment plant technician. This is not an ultrasound performed by a physician in our office during a routine visit. SIGNS AND SYMPTOMS OF LABOR 1. Contractions every 10 minutes or more often 2. Clear, pink, or brownish fluid (water) leaking from vagina 3. Feeling that baby is pushing down, pressure 4. Low, dull backache 5. Cramps that feel like a period 6. Cramps with or without diarrhea If you notice any of the above symptoms, contact our office at [phone] and ask to speak with a nurse. After hours, you can call doctors registry at [phone] OR call [facility] at [phone] and ask to have the doctor electronic calibration technician paged. If you consider this an emergency, dial or go to your nearest emergency department. NEED HELP? Are you dealing with a violent or abusive relationship? Are you a victim of rape or sexual assult? Call [facility] ([place]) 24 hour Crisis Hotline: 182.367.5042 or 892-001-0289. MANUAL Your Guide to a Healthy manual is now on-line. Visit [email or web address] [email or web address] to download your free copy documented in this encounter [facility] 02-22-2023 Miscellaneous Notes KJ - No VB/LOF/ctxs. Reports some FM. A&P: Anatomy US today renal pyelectasis - follow up US ordered and will schedule once final US read available Kaley Grey MD documented in this encounter [facility] 02-22-2023 Instructions Masters Lizbeth Dominguez - 02/22/2023 10:17 AM EDT SEQUENTIAL SCREENINGS The [facility] offers sequential screenings for women who are interested in screenings for chromosomal abnormalities and certain defects during a . The sequential screen combines ultrasound and blood tests to determine the risk of chromosomal abnormalities, including Down's Syndrome (Trisomy 21) and Trisomy 18, as well as open neural tube defects including spina bifida. Ultrasound examination is performed between 11 weeks and 13 weeks gestational age. Blood tests are drawn after the ultrasound and again later in the between 15 and 21 weeks gestational age. Please let your physician know if you are interested in this testing. It will require an appointment with our chemical treatment plant technician. This is not an ultrasound performed by a physician in our office during a routine visit. SIGNS AND SYMPTOMS OF LABOR 1. Contractions every 10 minutes or more often 2. Clear, pink, or brownish fluid (water) leaking from vagina 3. Feeling that baby is pushing down, pressure 4. Low, dull backache 5. Cramps that feel like a period 6. Cramps with or without diarrhea If you notice any of the above symptoms, contact our office at [phone] and ask to speak with a nurse. After hours, you can call doctors registry at [phone] OR call [facility] at [phone] and ask to have the doctor electronic calibration technician paged. If you consider this an emergency, dial 9--4 or go to your nearest emergency department. NEED HELP? Are you dealing with a violent or abusive relationship? Are you a victim of rape or sexual assult? Call [facility] ([place]) 24 hour Crisis Hotline: 546.222.6512 or 371-082-8095. MANUAL Your Guide to a Healthy manual is now on-line. Visit [email or web address] [email or web address] to download your free copy documented in this encounter [facility] 01-29-2023 Evaluation + Plan note Associated Problem(s): Dysfunction of right eustachian tube Recommended that if she does not need to use any medications that would be good but if she does get to the point where it is bothering her too much she can try some Sudafed which should be safe in . [facility] 01-29-2023 Miscellaneous Notes Associated Problem(s): Dysfunction of right eustachian tube Recommended that if she does not need to use any medications that would be good but if she does get to the point where it is bothering her too much she can try some Sudafed which should be safe in . Associated Problem(s): Oral candidiasis Currently seems to be improved, she is to use the nystatin for couple more days then stop it. documented in this encounter [facility] 01-29-2023 Evaluation + Plan note Associated Problem(s): Oral candidiasis Currently seems to be improved, she is to use the nystatin for couple more days then stop it. [facility] 01-29-2023 History of Presen t illness Narrative Patient verified by last name and date of . Images from the original note were not included. 01/29/2023 Indiana Torres (: 1995) is a 27 y.o. female , Established patient, here for evaluation of the following chief complaint(s): New Patient, Ear Fullness (Seems always get plugged when ), Thrush (Has been on medication for about a week but is not any better ), Heartburn (But not sure if from ), and Health Maintenance (Hep c or hiv screening- refuse/Covid vaccine- not done/Mmr vaccine- done as child/Varicella vaccine- had chicken pox /Hpv vaccine- not done/Pap- current sees [facility] ) ASSESSMENT/PLAN: 1. Annual physical exam 2. Dysfunction of right eustachian tube Assessment & Plan: Recommended that if she does not need to use any medications that would be good but if she does get to the point where it is bothering her too much she can try some Sudafed which should be safe in . 3. Oral candidiasis Assessment & Plan: Currently seems to be improved, she is to use the nystatin for couple more days then stop it. Follow up in about 1 year (around 01/30/2024). SUBJECTIVE/OBJECTIVE: AGUSTO Dickens comes in today to establish as a new patient, she would like an annual exam and she has a couple of issues that she would like looked at. She is 15 weeks and she says she does get heartburn and she thinks it may be from the . Suggested Pepcid Complete when she needs it. She also said that she had been on 3 different antibiotics for bacterial vaginosis, MetroGel, Flagyl and some other antibiotic that she is not sure what it was and she says she developed thrush she has been on nystatin swish and swallow for about a week and was told she would have to be for a month. This was given to her at [facility]. Her last complaint is that her right ear feels plugged most the time if she pushes below the ear and will help to relieve it and then we will recur and she is not sure whether that is due to her also since it seems to have started shortly after she was. And she had the same thing with her previous . Review of Systems Constitutional: Negative for chills and fever. Respiratory: Negative for shortness of breath. Cardiovascular: Negative for chest pain and palpitations. Gastrointestinal: Negative for abdominal pain, blood in stool, constipation and diarrhea. Genitourinary: Negative for dysuria, frequency, hematuria and urgency. Neurological: Negative for weakness and numbness. Psychiatric/Behavioral: Negative for dysphoric mood. The patient is not nervous/anxious. Vitals: 01/29/23 1312 BP: 126/81 Pulse: 82 SpO2: 99% Weight: 141 lb 6.4 oz (64.1 kg) Height: 5' 8.5 (1.74 m) Physical Exam Vitals and nursing note reviewed. Constitutional: General: She is not in acute distress. Appearance: Normal appearance. HENT: Head: Normocephalic. Right Ear: Tympanic membrane, ear canal and external ear normal. Left Ear: Tympanic membrane, ear canal and external ear normal. Mouth/Throat: Mouth: Mucous membranes are moist. Pharynx: Oropharynx is clear. Eyes: Extraocular Movements: Extraocular movements intact. Pupils: Pupils are equal, round, and reactive to light. Cardiovascular: Rate and Rhythm: Normal rate and regular rhythm. Heart sounds: Normal heart sounds. No murmur heard. Pulmonary: Effort: Pulmonary effort is normal. Breath sounds: Normal breath sounds. Abdominal: General: Bowel sounds are normal. Palpations: Abdomen is soft. Comments: Gravid abdomen Musculoskeletal: General: Normal range of motion. Cervical back: Normal range of motion. Lymphadenopathy: Cervical: No cervical adenopathy. Skin: General: Skin is warm and dry. Neurological: General: No focal deficit present. Mental Status: She is alert and oriented to person, place, and time. Psychiatric: Mood and Affect: Mood normal. An electronic signature was used to authenticate this note. Anju Koenig MD 01/29/2023 2:37 PM documented in this encounter [facility] 01-23-2023 Miscellaneous Notes DM- Pt doing well today. Denies Vaginal Bleeding, Leaking fluid, or contractions. Pt reports good movement. Being treated for Thrush but doesn't feel it is gone completely. Has been treated for BV multiple times during - still has some discharge, no burning, no itching or odor. Recommend- OTC vaginal probiotic and condom us for remainder of . Will reswab next week if still has discharge. RTO 4 weeks for anatomy us. Frederick Garcia MD documented in this encounter [facility] 01-23-2023 Instructions Ignacia Adler Ma 01/23/2023 8:57 AM EDT SEQUENTIAL SCREENINGS The [facility] offers sequential screenings for women who are interested in screenings for chromosomal abnormalities and certain defects during a . The sequential screen combines ultrasound and blood tests to determine the risk of chromosomal abnormalities, including Down's Syndrome (Trisomy 21) and Trisomy 18, as well as open neural tube defects including spina bifida. Ultrasound examination is performed between 11 weeks and 13 weeks gestational age. Blood tests are drawn after the ultrasound and again later in the between 15 and 21 weeks gestational age. Please let your physician know if you are interested in this testing. It will require an appointment with our chemical treatment plant technician. This is not an ultrasound performed by a physician in our office during a routine visit. SIGNS AND SYMPTOMS OF LABOR 1. Contractions every 10 minutes or more often 2. Clear, pink, or brownish fluid (water) leaking from vagina 3. Feeling that baby is pushing down, pressure 4. Low, dull backache 5. Cramps that feel like a period 6. Cramps with or without diarrhea If you notice any of the above symptoms, contact our office at [phone] and ask to speak with a nurse. After hours, you can call doctors registry at [phone] OR call [facility] at [phone] and ask to have the doctor electronic calibration technician paged. If you consider this an emergency, dial 5-1-5 or go to your nearest emergency department. NEED HELP? Are you dealing with a violent or abusive relationship? Are you a victim of rape or sexual assult? Call [facility] ([place]) 24 hour Crisis Hotline: 776.999.2983 or 948-808-9945. MANUAL Your Guide to a Healthy manual is now on-line. Visit [email or web address] [email or web address] to download your free copy documented in this encounter [facility] 01-09-2023 Miscellaneous Notes Addended by: RONALD NEIL on: 01/09/2023 02:10 PM Modules accepted: Orders Addended by: BRIAN PARK MA on: 01/09/2023 01:47 PM Modules accepted: Orders Addended by: BRIAN PARK MA on: 01/09/2023 01:25 PM Modules accepted: Orders RR- VB No. LOF No. CTXS No. Movement: absent. Other c/o: still w/ vaginal irritatio and discharge and just finished metrogel, took oral metronidaole earlier in December 2022. Did not have these issues before this or with last . No change in partners. Some external and internal irritation. Spone blood tinged discharge intermittently Medication list reviewed. Physical Exam See Flow Sheet Abd: soft, nontender, gravid : external genitalia: normal, vagina: pink, ruggated, discharge: odorless, clear, white, yellow, adherent, and blood: absent, cervix: closed A/P 12w2d Estimated Date of Delivery: 07/22/23 Labs: just vaginal swab today treat w/ clinda use condoms for next couple of weeks until resolved. Ronald Neil M.D. documented in this encounter [facility] 01-09-2023 Instructions Brian Park Ma - 01/09/2023 11:44 AM EDT SEQUENTIAL SCREENINGS The [facility] offers sequential screenings for women who are interested in screenings for chromosomal abnormalities and certain defects during a . The sequential screen combines ultrasound and blood tests to determine the risk of chromosomal abnormalities, including Down's Syndrome (Trisomy 21) and Trisomy 18, as well as open neural tube defects including spina bifida. Ultrasound examination is performed between 11 weeks and 13 weeks gestational age. Blood tests are drawn after the ultrasound and again later in the between 15 and 21 weeks gestational age. Please let your physician know if you are interested in this testing. It will require an appointment with our chemical treatment plant technician. This is not an ultrasound performed by a physician in our office during a routine visit. SIGNS AND SYMPTOMS OF LABOR 1. Contractions every 10 minutes or more often 2. Clear, pink, or brownish fluid (water) leaking from vagina 3. Feeling that baby is pushing down, pressure 4. Low, dull backache 5. Cramps that feel like a period 6. Cramps with or without diarrhea If you notice any of the above symptoms, contact our office at [phone] and ask to speak with a nurse. After hours, you can call doctors registry at [phone] OR call [facility] at [phone] and ask to have the doctor electronic calibration technician paged. If you consider this an emergency, dial 9--3 or go to your nearest emergency department. NEED HELP? Are you dealing with a violent or abusive relationship? Are you a victim of rape or sexual assult? Call [facility] ([place]) 24 hour Crisis Hotline: 998.835.6252 or 003-898-8780. MANUAL Your Guide to a Healthy manual is now on-line. Visit [email or web address] to download your free copy documented in this encounter [facility] 01-09-2023 Miscellaneous Notes Patient given an appointment for today. Candi Whitley RN Patient's next ob appointment is 01/15/2023 documented in this encounter [facility] 01-01-2023 Note HNO ID: [id number] Author: Frederick Martin MD Service: ? Author Type: Physician Type: Progress Notes Filed: 01/01/2023 4:37 PM Note Text: Indiana Torres is a 27 year old female who presents for concerns regarding vaginal infection/irritation. Pt reports was treated for BV but still feels irritated. Pt reports no odor but states burning, more pain on back part of vaginal area and feels swollen. Pt reports no changes in soaps or detergents. No concerns for stds. No fever. No other concerns. 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 History Comments: Sexual Activity: Yes; Male Contraception: No contraception data on record PAST MEDICAL HISTORY Diagnosis Date breast lump 2018 depression PAST SURGICAL HISTORY Procedure Laterality Date PAST SURGICAL HISTORY OF wisdom teeth PAST SURGICAL HISTORY OF Granulation tissue at site of ob laceration removed FAMILY HISTORY Problem Relation Age of Onset Breast Cancer Mother Skin Cancer Father No Known Problems Sister No Known Problems Brother No Known Problems Brother other (eye issues) Maternal Grandmother No Known Problems Maternal Grandfather Skin Cancer Paternal Grandmother Skin Cancer Paternal Grandfather No Known Problems Son Social History Tobacco Use Smoking status: Never Smokeless tobacco: Never Vaping Use Vaping Use: Never used Substance Use Topics Alcohol use: Never Drug use: Never Current Outpatient Medications Medication Sig clotrimazole-betamethasone (LOTRISONE) cream Apply 1 application to affected area twice daily. aspirin, enteric coated (ASPIRIN, ENTERIC COATED) 81 mg EC tablet Take 2 tablets by mouth once daily. multivitamin (CLASSIC ) 28 mg iron- 800 mcg tab(s) Take 1 tablet by mouth once daily. No current facility-administered medications for this visit. Allergies As of Date: 01/01/2023 (No Known Allergies) Fully Assessed 01/01/2023 REVIEW OF SYSTEMS Abdomen: no pain Bladder: no dysuria but hurts when urine touches tissues.. Expanded ROS: no fever Allergies and current medication updated:Yes EXAM: BP 110/62 Wt 139 lb (63.1kg) LMP 10/15/2022 GENERAL: pleasant, female in no apparent distress HEENT: Normocephalic and atraumatic NECK: full range of motion PELVIC: external genitalia normal, normal Bartholin's glands, urethra, [place]'s glands, no cervical lesions, good vaginal support, physiologic discharge present, normal appearing perineal body and perianal region, small excoriation at posterior fourchette. NEURO: alert and oriented x3,exam grossly non-focal ASSESSMENT AND PLAN: Encounter Diagnosis ICD-10-CM 1. Vaginal irritation N89.8 CAMMY/TRICHOMONAS NAAT BACTERIAL VAGINOSIS NAAT 2. 11 weeks gestation of Z3A.11 URINE OB DIP B/O 3. Vulvar and vaginal hygiene reviewed. Lotrisone ordered. Medical Decision Making: Problems: Low: Acute, uncomplicated illness or injury Data: Unique test(s) ordered: 2 Risk: Moderate: Drug management Medical Decision Making Level: 3 - Low Frederick Garcia MD [facility] 12-19-2022 Note HNO ID: [id number] Author: Eamon Wilson APRN.CASANDRA Service: ? Author Type: Catheterization Laboratory Technician Type: Progress Notes Filed: 12/19/2022 5:44 PM Note Text: INITIAL OB ASSESSMENT OB Provider: Eamon Wilson APRN CNM HPI: [place] is a 27 year old White here to establish Obstetrical Care. Patient's last menstrual period was 10/15/2022 (approximate). from OB Dating Form. Cycles regular was planned Complaints: Some spotting OB History T1 L1 SAB0 IAB0 Ectopic0 Multiple0 Live Births1 Previous history: Prior : never History of 4th degree laceration: No History of shoulder dystocia: No History of Hypertensive disorders including pre-eclampsia, chronic hypertension or gestational hypertension: No History of gestational diabetes: No Patient's Risk Screening for delivery: None MEDICAL/PSYCHOSOCIAL HISTORY: History of hemorrhage or bleeding concerns: No Thyroid Disease: No History of chronic hypertension: No History of pre-existing diabetes: No ABO/RH(D) Date Value Ref Range Status 06/06/2021 A NEGATIVE Final BMI 20.15 kg/(m2) History of abnormal pap: No Prior treatment for cervical dysplasia: none. History of STDs: None Tobacco use: No Caffeine use: Yes - coffee Drug use: No Alcohol use: No Multivitamin with Folic acid: Yes Sabianist or heritage: No Would refuse blood transfusion if medically necessary: No Are you currently employed? No Do you have any history of depression, anxiety, PTSD, eating disorders or other mood problems: No Do you have any safety concerns or history of traumatic events that you would like to discuss with your provider: No How often does this describe you? I don't have enough money to pay my bills: Never Within the past 12 months, have you worried that your food would run out before you had money to buy more: Never In the past 12 months, has lack of reliable transportation kept you from going to medical appointments or work, or from keeping things needed for daily living: Never In the past 12 months, have you had any concerns about having a place to live, or about the condition or quality of your housing: Never Are there any cultural or spiritual needs we should be aware of: No Depression: denies symptoms of depression. OB Depression and Anxiety Screening- This Encounter (since 12/18/2022) Over the past 2 weeks have you felt down, depressed, or hopeless? Negative Over the past two weeks, have you felt little interest or pleasure in doing things?? Negative Feeling nervous, anxious or on edge 0-Not at all Not being able to stop or control worrying 0-Not al all Anxiety Pre-Screening Total (If >/= 3 additional questions will be reviewed) 0 GENETIC SCREENING: Partner present: Yes Patient verbalized knowledge of partner family health history: Yes Do you or your partner have any personal or family history of defects not previously discussed: No Do you have history of a complicated by anomaly, genetic condition, or demise: No Marital Status: Partner: Name: Buster Age: 21 Occupation: [employer] Gender: Male History of STDs: None PAST MEDICAL HISTORY Diagnosis Date breast lump 2018 depression PAST SURGICAL HISTORY Procedure Laterality Date PAST SURGICAL HISTORY OF wisdom teeth PAST SURGICAL HISTORY OF Granulation tissue at site of ob laceration removed Current Outpatient Medications Medication Sig Dispense Refill multivitamin (CLASSIC ) 28 mg iron- 800 mcg tab(s) Take 1 tablet by mouth once daily. No current facility-administered medications for this visit. Allergies As of Date: 12/19/2022 (No Known Allergies) Fully Assessed 12/14/2022 Does patient have penicillin allergy: No REVIEW OF SYSTEMS: GENERAL: Negative for: Fever or Chills HEENT: Negative for: Headache, Impaired Vision, Ringing in Ears, Nosebleeds NECK: Negative for: Swelling, Pain, Stiffness RESPIRATORY: Negative for: Cough, Shortness of breath, Wheezing GASTROINTESTINAL: Negative for: Heartburn, Constipation, Diarrhea, Blood in stool, Vomiting MUSCULOSKELETAL: Negative for: Muscle or joint pain, stiffness, Joint swelling NEUROLOGIC/PSYCHIATRIC: Negative for: Weakness, Paralysis, Numbness, Tingling, Tremor, Anxiety, Depression, Memory loss SKIN: Negative for: Rash, Itching GENITOURINARY: Negative for: vaginal itching, vaginal discharge, hematuria or dysuria PHYSICAL EXAM: BP 102/68 Ht 5' 9.5 (1.77m) Wt 138 lb 6.4 oz (62.8kg) LMP 10/15/2022 BMI 20.15 kg/(m2). GENERAL: pleasant in no apparent distress DERMATOLOGY: Normal, without lesions, non-icteric, and non-hirsute NECK: Supple, full range of motion, no adenopathy, and thyroid normal CHEST: Normal inspiratory effort BREAST: soft, non-tender, symmetric, no dominant mass, normal nipple-areolar (more content not included)... [facility] 12-19-2022 Note HNO ID: [id number] Author: Eamon Wilson APRN.CNM Service: ? Author Type: Catheterization Laboratory Technician Type: Progress Notes Filed: 12/20/2022 4:21 PM Note Text: [facility] 12-19-2022 History of Presen t illness Narrative INITIAL OB ASSESSMENT OB Provider: Eamon Wilson APRN CNM HPI: [place] is a 27 year old White here to establish Obstetrical Care. Patient's last menstrual period was 10/15/2022 (approximate). from OB Dating Form. Cycles regular was planned Complaints: Some spotting OB History T1 L1 SAB0 IAB0 Ectopic0 Multiple0 Live Births1 Previous history: Prior : never History of 4th degree laceration: No History of shoulder dystocia: No History of Hypertensive disorders including pre-eclampsia, chronic hypertension or gestational hypertension: No History of gestational diabetes: No Patient's Risk Screening for delivery: None MEDICAL/PSYCHOSOCIAL HISTORY: History of hemorrhage or bleeding concerns: No Thyroid Disease: No History of chronic hypertension: No History of pre-existing diabetes: No ABO/RH(D) Date Value Ref Range Status 06/06/2021 A NEGATIVE Final BMI 20.15 kg/(m^2) History of abnormal pap: No Prior treatment for cervical dysplasia: none. History of STDs: None Tobacco use: No Caffeine use: Yes - coffee Drug use: No Alcohol use: No Multivitamin with Folic acid: Yes Sabianist or heritage: No Would refuse blood transfusion if medically necessary: No Are you currently employed? No Do you have any history of depression, anxiety, PTSD, eating disorders or other mood problems: No Do you have any safety concerns or history of traumatic events that you would like to discuss with your provider: No How often does this describe you? I don't have enough money to pay my bills: Never Within the past 12 months, have you worried that your food would run out before you had money to buy more: Never In the past 12 months, has lack of reliable transportation kept you from going to medical appointments or work, or from keeping things needed for daily living: Never In the past 12 months, have you had any concerns about having a place to live, or about the condition or quality of your housing: Never Are there any cultural or spiritual needs we should be aware of: No Depression: denies symptoms of depression. OB Depression and Anxiety Screening- This Encounter (since 12/18/2022) Over the past 2 weeks have you felt down, depressed, or hopeless? Negative Over the past two weeks, have you felt little interest or pleasure in doing things? Negative Feeling nervous, anxious or on edge 0-Not at all Not being able to stop or control worrying 0-Not al all Anxiety Pre-Screening Total (If >/= 3 additional questions will be reviewed) 0 GENETIC SCREENING: Partner present: Yes Patient verbalized knowledge of partner family health history: Yes Do you or your partner have any personal or family history of defects not previously discussed: No Do you have history of a complicated by anomaly, genetic condition, or demise: No Marital Status: Partner: Name: Buster Age: 21 Occupation: [employer] Gender: Male History of STDs: None PAST MEDICAL HISTORY Diagnosis Date breast lump 2018 depression PAST SURGICAL HISTORY Procedure Laterality Date PAST SURGICAL HISTORY OF wisdom teeth PAST SURGICAL HISTORY OF Granulation tissue at site of ob laceration removed Current Outpatient Medications Medication Sig Dispense Refill multivitamin (CLASSIC ) 28 mg iron- 800 mcg tab(s) Take 1 tablet by mouth once daily. No current facility-administered medications for this visit. Allergies As of Date: 12/19/2022 (No Known Allergies) Fully Assessed 12/14/2022 Does patient have penicillin allergy: No REVIEW OF SYSTEMS: GENERAL: Negative for: Fever or Chills HEENT: Negative for: Headache, Impaired Vision, Ringing in Ears, Nosebleeds NECK: Negative for: Swelling, Pain, Stiffness RESPIRATORY: Negative for: Cough, Shortness of breath, Wheezing GASTROINTESTINAL: Negative for: Heartburn, Constipation, Diarrhea, Blood in stool, Vomiting MUSCULOSKELETAL: Negative for: Muscle or joint pain, stiffness, Joint swelling NEUROLOGIC/PSYCHIATRIC: Negative for: Weakness, Paralysis, Numbness, Tingling, Tremor, Anxiety, Depression, Memory loss SKIN: Negative for: Rash, Itching GENITOURINARY: Negative for: vaginal itching, vaginal discharge, hematuria or dysuria PHYSICAL EXAM: BP 102/68 Ht 5' 9.5 (1.77m) Wt 138 lb 6.4 oz (62.8kg) LMP 10/15/2022 BMI 20.15 kg/(m^2). GENERAL: pleasant in no apparent distress DERMATOLOGY: Normal, without lesions, non-icteric, and non-hirsute NECK: Supple, full range of motion, no adenopathy, and thyroid normal CHEST: Normal inspiratory effort BREAST: soft, non-tender, symmetric, no dominant mass, normal nipple-areolar complex, no lymphadenopathy, and no nipple discharge ABDOMEN: soft, non-tender, and no masses NEURO: alert and oriented x3,exam grossly non-focal PELVIS: External genitalia normal without lesions. Perineal body intact. No vaginal or cervical lesions. Cervix closed. Uterus 9 week size. No adnexal masses or tenderness. Clinical Pelvimetry: Pelvimetry clinically assessed as adequate Limited OB ultrasound exam: not performed OB Risk Screening: Completed, no positive findings documented. ASSESSMENT: 27 year old at 9w2d wks gestational age PLAN: 1) Patient oriented to practice. Discussed nutrition, folic acid supplementation, dietary guidelines, exercise, smoking, alcohol, caffeine, and drug use. Discussed gestational weight gain guidelines. Discussed routine OB labs including STD/HIV. Discussed aneuploidy and carrier screening. Regarding aneuploidy screening, nuchal translucency/first trimester early anatomy ultrasound and NIPT were discussed. Regarding carrier screening, the myriad screen was discussed. The risks/benefits and limitations of NIPT/aneuploidy screening were reviewed including the potential for false negative and false positive results. We discussed the availability of professional-society guided carrier screening and reviewed the conditions screened and limitations of screening. The availability of genetic counseling was reviewed. Information on aneuploidy/carrier screening was provided. The patient chooses: Aneuploidy screening: declines screening and Carrier screening: Declines Discussed hemoglobin electrophoresis. Patient: Accepts 2) Still having some spotting, will give rhogam today after type and screen 3) Son will be one on December 27, close interval . Follow up in 4 weeks or sooner prn. Eamon Wilson APRN.CNM documented in this encounter [facility] 12-19-2022 Instructions Eamon Wilson APRN.CNM - 12/19/2022 8:41 AM EDT Please select the following link to access the [facility] Your Guide to a Healthy . [email or web address] Aspirin 162mg by mouth once daily after 12 weeks (take 2 of the 81mg tablets documented in this encounter [facility] 12-14-2022 Note HNO ID: [id number] Author: Sherron Padron RN Service: ? Author Type: ? Type: Progress Notes Filed: 12/14/2022 5:34 PM Note Text: # 1 - Date: 12/27/21, Sex: Male, Weight: 8 lb 8 oz (3.856 kg), GA: 38w1d, Delivery: Vaginal, Vacuum (Extractor), Apgar1: None, Apgar5: None, Living: Living, Comments: Midline and 2nd degree Episiotomy- Granulation tissue at site of ob laceration removed # 2 - Date: None, Sex: None, Weight: None, GA: None, Delivery: None, Apgar1: None, Apgar5: None, Living: None, Comments: None [facility] 12-14-2022 Miscellaneous Notes DISTANCE HEALTH VISIT This Team Access Model visit is a phone encounter. It required patient-provider interaction for the medical decision making as documented below. [place] Torres is a 27 year old female seen for PNOB visit. Patient complained of spotting November 03. Quantitative hCGs were drawn. Patient states she continues to spot but it is now and ranges color when I wipe . Patient denies any pain. Miscarriage precautions given. Patient has an ultrasound scheduled for today. Patient delivered her previous child December 27, 2021.Pt has a history of depression that lasted about 2 months. She she did not take any medication to treat it.. Discussed increased risks of depression during and and importance of reporting the development or worsening of symptoms should they occur. Pt denies ever having any suicidal thoughts or tendencies or thoughts of hurting others. Patient has a history of midline and second-degree episiotomy. She has a history of granulation tissue at the site of the OB laceration removed. Patient is Rh-. She is a RhoGAM candidate. Patient states she has had a rash for about a month. She questions if it might be ringworm. I have advised her to see her PCP or customer resolution specialist as soon as possible. Patient has a first cousin born with a hole in the heart. Corrective surgery was done. Patient declines aneuploidy screening and genetic carrier screening testing.Sherron Padron RN documented in this encounter [facility] 12-14-2022 History of Presen t illness Narrative # 1 - Date: 12/27/21, Sex: Male, Weight: 8 lb 8 oz (3.856 kg), GA: 38w1d, Delivery: Vaginal, Vacuum (Extractor), Apgar1: None, Apgar5: None, Living: Living, Comments: Midline and 2nd degree Episiotomy- Granulation tissue at site of ob laceration removed # 2 - Date: None, Sex: None, Weight: None, GA: None, Delivery: None, Apgar1: None, Apgar5: None, Living: None, Comments: None documented in this encounter [facility] 12-04-2022 Miscellaneous Notes Patient notified and voiced understanding. Will get repeat blood work today. New OB appointment rescheduled and ultrasound scheduled. Bleeding precautions reviewed. Ursula Conley RN Please see result note. Follow up quant ordered. Please assist with scheduling NOB sooner with ultrasound if possible. Orders placed. Kelsy Diggs APRN.CNM Patient calling with concerns of ongoing spotting of pink to brown. Spotting is mostly when wiping, but will also be on her panty liner. Patient is a , LMP is 10/15/22 making her approximately 7w1d. Patient originally sent a [employer] message on 11/30 in regards to having pink spotting and cramping and HCG levels were ordered and she had a level drawn on 11/30. hCG Quantitative, Blood (mIU/mL) Date Value 11/30/2022 22,803.0 Patient was never notified of result and repeat level was never drawn. According to file patients blood type is A-. Patient still having occasional generalized abdominal cramping that she rates at a 1 out of 10. Patient has PNOB on 12/14, but does not have New OB until 01/08-patient will be 12 weeks at that time. Patient concerned with ongoing spotting. Do you want patient to repeat her quant level? New OB appointment will need to be rescheduled to a sooner date. Ursula Conley RN documented in this encounter [facility] 11-30-2022 Miscellaneous Notes Pt notified. Edel Huertas LPN HCG levels ordered. Please notify patient to have drawn. Please review bleeding precautions as well. Kelsy Diggs APRN.CNM Please see the pt's mychart message. LMP 10/15/22, advise on early ob with spotting. Edel Huertas LPN documented in this encounter [facility] 04-18-2022 History of Presen t illness Narrative [place] Torres is a 27 year old female who presents for problem visit skin tag in vaginovulvar area following vaginal HPI: Patients presetns today for evaluation of a skin tag in vaginovulvar area following vaginal . Patient states that mid wives made her aware of a piece of skin in the posterior part of the vaginal area. She says the pain was mild at first and has now diseapeard. It was bleeding at first and now is only bleeding minimally. It is not causing any distress for the patient. 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 History LMP: 04/04/2021 (Approximate), Unknown Age at Menarche: Age at First : Age at Menopause: Human Performance Consultant History Comments: Sexual Activity: Yes; Male Contraception: No contraception data on record PAST MEDICAL HISTORY Diagnosis Date breast lump 2018 PAST SURGICAL HISTORY Procedure Laterality Date PAST SURGICAL HISTORY OF wisdom teeth FAMILY HISTORY Problem Relation Age of Onset Breast Cancer Mother No Known Problems Father No Known Problems Sister No Known Problems Brother No Known Problems Brother other (eye issues) Maternal Grandmother No Known Problems Maternal Grandfather No Known Problems Paternal Grandmother No Known Problems Paternal Grandfather Social History Tobacco Use Smoking status: Never Smokeless tobacco: Never Vaping Use Vaping Use: Never used Substance Use Topics Alcohol use: Never Drug use: Never Current Outpatient Medications Medication Sig multivitamin (CLASSIC ) 28 mg iron- 800 mcg tab(s) Take 1 tablet by mouth once daily. No current facility-administered medications for this visit. Allergies As of Date: 04/18/2022 (Not on File) Fully Assessed 02/17/2022 REVIEW OF SYSTEMS Abdomen: Admits to nausea. No abdominal pain, vomiting, diarrhea, or constipation. No bloating, early satiety, indigestion, or increased flatulence. No abdominal pain, nausea, vomiting, diarrhea, or constipation. Bladder: No dysuria, gross hematuria, urinary frequency, urinary urgency, or incontinence. Breast: No breast lumps, nipple d/c, overlying skin changes, redness or skin retraction. Allergies and current medication updated:Yes EXAM: BP 120/72 Wt 145 lb (65.8kg) LMP 04/04/2021 GENERAL: pleasant, female in no apparent distress HEENT: Normocephalic NECK: full range of motion DERMATOLOGY: Normal, without lesions, non-icteric, and non-hirsute PELVIC: normal cervix. On laceration site there is a 1cm piece of beefy red tissue c/w granulation tissue- tender to touch. NEURO: alert and oriented x3,exam grossly non-focal EXTREMITIES: normal ASSESSMENT AND PLAN: Encounter Diagnosis ICD-10-CM 1. Granulation tissue at obstetrical laceration site L92.9 2. Discussed granulation tissue and impact on healing/pain. Discussed applying silver nitrate but it would probably take multiple applications versus in office removal with silver nitrate application to the base. After discussion patient and would like to proceed with removal. Medical Decision Making: Problems: Low: Acute, uncomplicated illness or injury Risk: Moderate: Moderate risk from testing/treatment Medical Decision Making Level: 3 - Low Frederick Garcia MD [place] Torres is a 27 year old female who presents today for removal of vaginal granulation tissue at obstetrical site laceration UNIVERSAL PROTOCOL / SAFETY CHECKLIST Procedure to be Performed: removal of granulation tissue Sign In: A Moment of CARE was completed. Personnel directly involved with the procedure wore the appropriate PPE (Personal Protective Equipment). Patient/Surrogate Stated/Verified: PATIENT VERIFIED(optional for EMERGENT procedures): Patient name, Date of , Relevant allergies, and The intended procedure Time Out Communication: Intended patient and procedure match the source documents. Consent documented and matches the intended procedure. Sign Out: SIGN OUT (optional for EMERGENT procedures): No specimen collected. Frederick Garcia MD PROCEDURE NOTE: GROSS LESIONS: Yes, 1cm beefy red granulation tissue at introitus - site of laceration - otherwise healed well. excision: Area was cleansed with betadine and anesthetized with 3mL 1% lidocaine with 1:100,000 epi. Granulation tissue cut at based with sterile scissor HEMOSTASIS: Obtained with silver nitrate and pressure Procedure Summary: Patient tolerated procedure well. ASSESSMENT: Granulation tissue at site of ob laceration PLAN: Post procedure instructions reviewed. Frederick Garcia MD documented in this encounter [facility] 04-12-2022 Miscellaneous Notes Patient notified. Appointment scheduled. Candi Whitley RN Consulted with Dr. Sheriff and she would like to see patient in office to evaluate for removal. Please assist patient with scheduling! Thank you. Kelsy Diggs APRN.CNM Patient asking if CP has an update from her office visit on 04/06/22. Have you spoken with one of the provider's regarding patient's need for surgical management? Candi Whitley RN documented in this encounter [facility] 04-06-2022 History of Presen t illness Narrative Acid Retort Operator offered: Patient declines. [place] Torres is a 27 year old female who presents for problem visit of vaginal pain and bleeding. HPI: Vacuum assisted delivery on 12/27/21. Midline episiotomy and second degree laceration. Patient reports has not had any issues or pain since delivery but two days ago she felt like she just gave again . She stated vagina feels sore and she noticed bleeding after wiping last night. No recent intercourse. Denies dysuria, hematuria, vaginal itching or discharge. OB History T1 L1 SAB0 IAB0 Ectopic0 Multiple0 Live Births1 REVIEW OF SYSTEMS Abdomen: No bloating, early satiety, indigestion, or increased flatulence. No abdominal pain, nausea, vomiting, diarrhea, or constipation. Bladder: No dysuria, gross hematuria, urinary frequency, urinary urgency, or incontinence. Breast: No breast lumps, nipple d/c, overlying skin changes, redness or skin retraction. 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 Tissue moderately tender and friable with palpation. ASSESSMENT/PLAN: 1. 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 Vaginal laceration, old - ICD9: 623.4, ICD10: N89.8 Chart to be reviewed with physician and plan of care to be determined. Will notify patient of plan. Kelsy Diggs APRN.CNM documented in this encounter [facility] 03-20-2022 Miscellaneous Notes Patient notified Patient delivered in December 2021. It is common to have irregular cycles after delivery. If she is - that may be throwing things off as well. It is nothing to be concerned about at this time. Kelsy Diggs APRN.CNM Last seen 02/17/22 for PP visit. documented in this encounter [facility] 02-17-2022 History of Presen t illness Narrative Acid Retort Operator offered: Patient declines. VISIT Indiana Torres is a 26 year old year old here for visit. Delivery Summary: vag- vacuum 12/24/2021 ROS/ Recovery: Feeding: Breast feeding problems: None Menses since delivery: spotting Menstrual pattern prior to : Regular periods [place] since delivery: Not resumed Depression: denies, admits to symptoms of depression. OB Depression and Anxiety Screening- This Encounter (since 02/16/2022) Over the past 2 weeks have you felt down, depressed, or hopeless? Positive - Further Testing Indicated Over the past two weeks, have you felt little interest or pleasure in doing things? Positive - Further Testing Indicated I have been able to laugh and see the funny side of things. Not quite so much now I have looked forward with enjoyment to things. As much as I ever did I have blamed myself unnecessarily when things went wrong. Yes, some of the time I have been anxious or worried for no good reason. Yes, sometimes I have felt scared or panicky for no good reason. No, not at all Things have been getting on top of me. No, most of the time I have coped quite well I have been so unhappy that I have had difficulty sleeping. Not very often I have felt sad or miserable. Not very often I have been so unhappy that I have been crying. Only occasionally The thought of harming myself has occurred to me. Never Weed Depression Scale Total 9 Feeling nervous, anxious or on edge 0-Not at all Not being able to stop or control worrying 0-Not al all Anxiety Pre-Screening Total (If >/= 3 additional questions will be reviewed) 0 Emotional support: Yes Bowel symptoms: Negative for abdominal discomfort, blood in stools or black stools and change in bowel habits Abdomen: N/A Bladder symptoms: No dysuria, gross hematuria, urinary frequency, urinary urgency, or incontinence Other issues: None Last Pap: 2020 normal HPV: N/A PAST MEDICAL HISTORY Diagnosis Date breast lump 2018 PAST SURGICAL HISTORY Procedure Laterality Date PAST SURGICAL HISTORY OF wisdom teeth FAMILY HISTORY Problem Relation Age of Onset Breast Cancer Mother No Known Problems Father No Known Problems Sister No Known Problems Brother No Known Problems Brother other (eye issues) Maternal Grandmother No Known Problems Maternal Grandfather No Known Problems Paternal Grandmother No Known Problems Paternal Grandfather Social History Tobacco Use Smoking status: Never Smokeless tobacco: Never Vaping Use Vaping Use: Never used Substance Use Topics Alcohol use: Never Drug use: Never PHYSICAL EXAMINATION: BP 108/70 Wt 147 lb (66.7kg) LMP 04/04/2021 GENERAL: pleasant, female in no apparent distress HEENT: Normocephalic, atraumatic, mucus membranes moist, and no lesions NECK: Supple, full range of motion, no adenopathy, and thyroid normal DERMATOLOGY: Normal, without lesions, non-icteric, and non-hirsute BREAST: soft, non-tender, symmetric, no dominant mass, normal nipple-areolar complex, no lymphadenopathy, and no nipple discharge CHEST: Normal inspiratory effort ABDOMEN: soft, non-tender, and no masses. INCISION: N/A PELVIC: external genitalia normal, normal Bartholin's glands, urethra, [place]'s glands, no vulvar lesions, no cervical lesions, good vaginal support, physiologic discharge present, normal appearing perineal body and perianal region BIMANUAL: uterus normal size, shape and consistency, no adnexal masses, and non-tender NEURO: exam grossly non-focal EXTREMITIES: normal ASSESSMENT AND PLAN: 26 year old status post Vacuum with normal course. - No h/o underlying depression/anxiety. Not interested in counseling or medication at this time. No SI or HI. Contraception plan: Discussed all options for contraception and recommended interval. Follow up: RTC for annual exams and PRN Shonna Aguilar DO documented in this encounter [facility] 01-13-2022 History of Presen t illness Narrative EARLY VISIT Indiana Torres is a 26 year old here for 2 week visit. C/o lower left back pain that wraps around to side, aching in nature. Pt reports pain started last night- was relieved with tylenol and motrin. Pt reports mild dysuria but better today. Delivery Summary: vacuum assisted delivery ROS: General: Denies any fever or chills Hypertension Screening: Headache? No. Visual Changes? No Mood: normal Depression: denies symptoms of depression. OB Depression and Anxiety Screening- This Encounter (since 01/12/2022) Over the past 2 weeks have you felt down, depressed, or hopeless? Negative Over the past two weeks, have you felt little interest or pleasure in doing things? Negative Feeling nervous, anxious or on edge 0-Not at all Not being able to stop or control worrying 0-Not al all Anxiety Pre-Screening Total (If >/= 3 additional questions will be reviewed) 0 Feeding: Breast feeding problems: None Bladder: mild dysuria better today, no incontinence- no urgency or frequency Bowel symptoms: Negative for abdominal discomfort, blood in stools or black stools and change in bowel habits Abdomen: N/A Bleeding: light flow Bottom and Perineum: No issues Sleep: no sleep concerns, feels rested [place] since delivery: Not resumed Emotional support: Yes Exercise: N/A Other issues: None PHYSICAL EXAMINATION: BP 104/60 Wt 147 lb (66.7 kg) LMP 04/04/2021 (Approximate) Yes BMI 21.71 kg/m General: pleasant,female in no apparent distress, A&O x 3. Skin warm and intact. Breast: Deferred Abdomen: Deferred /Incision: N/A Pelvic: Deferred Bimanual: Deferred ASSESSMENT AND PLAN: 1. 26 year old status post Vacuum with normal course. 2. Contraception plan: not applicable. Reinforced 6-week pelvic rest. Encouraged condom usage should patient deviate. 3. Education: resources provided - see MA/RN note 4. ?? UTI- culture sent Follow up: Return to Clinic for 6 week visit and as needed Medical Decision Making Frederick Garcia MD documented in this encounter [facility] 12-30-2021 History of Presen t illness Narrative Patient delivered via VAC assist VD at [facility] on 12/27/21 per aKley Grey MD. See OB Outcome note. Candi Whitley RN documented in this encounter [facility] 12-26-2021 Miscellaneous Notes S: Indiana Torres is a 26 year old female who presents at 38w0d with ROSIE: 01/09/2022, by Last Menstrual Period for a routine visit. Good FM. Denies headache, visual changes, chest pain, shortness of breath, vaginal bleeding, leakage of fluid, or dysuria. Feeling well, no complaints. No contractions or signs of labor. O: See flow sheet Gen: No apparent distress Abd: Gravid, nontender S=D, 29lb TWG, cephalic ASSESSMENT/PLAN: 1. 38 weeks gestation of P: 1) Labor instructions reviewed and when to call 2) RTO in 1 week or as needed Lashaun Mejía FINANCIAL SOLUTIONS ADVISOR, FAMILY ENGAGEMENT SPECIALIST Student Eamon Wilson APRN.CNM TEACHING PATTERN PUNCHER NOTE OF PERSONAL INVOLVEMENT IN CARE: I have interviewed the patient and updated the PATTERN PUNCHER student's PFS history, and ROS as necessary. I have re-performed the HPI, Physical Examination, Assessment and Plan. documented in this encounter [facility] 12-26-2021 Instructions Linda Agustin MA - 12/26/2021 8:57 AM EDT SEQUENTIAL SCREENINGS The [facility] offers sequential screenings for women who are interested in screenings for chromosomal abnormalities and certain defects during a . The sequential screen combines ultrasound and blood tests to determine the risk of chromosomal abnormalities, including Down's Syndrome (Trisomy 21) and Trisomy 18, as well as open neural tube defects including spina bifida. Ultrasound examination is performed between 11 weeks and 13 weeks gestational age. Blood tests are drawn after the ultrasound and again later in the between 15 and 21 weeks gestational age. Please let your physician know if you are interested in this testing. It will require an appointment with our chemical treatment plant technician. This is not an ultrasound performed by a physician in our office during a routine visit. SIGNS AND SYMPTOMS OF LABOR 1. Contractions every 10 minutes or more often 2. Clear, pink, or brownish fluid (water) leaking from vagina 3. Feeling that baby is pushing down, pressure 4. Low, dull backache 5. Cramps that feel like a period 6. Cramps with or without diarrhea If you notice any of the above symptoms, contact our office at [phone] and ask to speak with a nurse. After hours, you can call doctors registry at [phone] OR call [facility] at [phone] and ask to have the doctor electronic calibration technician paged. If you consider this an emergency, dial 9-1-9 or go to your nearest emergency department. NEED HELP? Are you dealing with a violent or abusive relationship? Are you a victim of rape or sexual assult? Call [facility] ([place]) 24 hour Crisis Hotline: 853.325.8848 or 323-529-6730. MANUAL Your Guide to a Healthy manual is now on-line. Visit [email or web address] to download your free copy documented in this encounter [facility] 12-19-2021 Miscellaneous Notes Indiana Torres is a 26 year old female who presents at 37w0d for a routine visit. Good movement. Occasional contractions. Reviewed how to time contractions and when to contact provider/office. Denies headache, visual changes, chest pain, shortness of breath, vaginal bleeding, leakage of fluid, or dysuria. Feeling well, no complaints. Size equal to dates. Labor precautions reviewed. RTC in 1 week or sooner if needed. Kelsy Diggs APRN.CNM documented in this encounter [facility] 12-19-2021 Instructions Ignacia Adler Ma - 12/19/2021 8:06 AM EDT SEQUENTIAL SCREENINGS The [facility] offers sequential screenings for women who are interested in screenings for chromosomal abnormalities and certain defects during a . The sequential screen combines ultrasound and blood tests to determine the risk of chromosomal abnormalities, including Down's Syndrome (Trisomy 21) and Trisomy 18, as well as open neural tube defects including spina bifida. Ultrasound examination is performed between 11 weeks and 13 weeks gestational age. Blood tests are drawn after the ultrasound and again later in the between 15 and 21 weeks gestational age. Please let your physician know if you are interested in this testing. It will require an appointment with our chemical treatment plant technician. This is not an ultrasound performed by a physician in our office during a routine visit. SIGNS AND SYMPTOMS OF LABOR 1. Contractions every 10 minutes or more often 2. Clear, pink, or brownish fluid (water) leaking from vagina 3. Feeling that baby is pushing down, pressure 4. Low, dull backache 5. Cramps that feel like a period 6. Cramps with or without diarrhea If you notice any of the above symptoms, contact our office at [phone] and ask to speak with a nurse. After hours, you can call doctors registry at [phone] OR call [facility] at [phone] and ask to have the doctor electronic calibration technician paged. If you consider this an emergency, dial 02-09- or go to your nearest emergency department. NEED HELP? Are you dealing with a violent or abusive relationship? Are you a victim of rape or sexual assult? Call [facility] ([place]) 24 hour Crisis Hotline: 226.760.7160 or 816-991-7317. MANUAL Your Guide to a Healthy manual is now on-line. Visit [email or web address] to download your free copy documented in this encounter [facility] 12-13-2021 Miscellaneous Notes DM- Pt doing well today. Denies Vaginal Bleeding, Leaking fluid, or regular contractions. Pt reports good movement. Ultrasound today- growth 88%. GBS today. Kick counts and labor reviewed. RTO 1 week. Frederick Garcia MD documented in this encounter [facility] 12-13-2021 Instructions Yolis Harris MA - 12/13/2021 1:02 PM EDT SEQUENTIAL SCREENINGS The [facility] offers sequential screenings for women who are interested in screenings for chromosomal abnormalities and certain defects during a . The sequential screen combines ultrasound and blood tests to determine the risk of chromosomal abnormalities, including Down's Syndrome (Trisomy 21) and Trisomy 18, as well as open neural tube defects including spina bifida. Ultrasound examination is performed between 11 weeks and 13 weeks gestational age. Blood tests are drawn after the ultrasound and again later in the between 15 and 21 weeks gestational age. Please let your physician know if you are interested in this testing. It will require an appointment with our chemical treatment plant technician. This is not an ultrasound performed by a physician in our office during a routine visit. SIGNS AND SYMPTOMS OF LABOR 1. Contractions every 10 minutes or more often 2. Clear, pink, or brownish fluid (water) leaking from vagina 3. Feeling that baby is pushing down, pressure 4. Low, dull backache 5. Cramps that feel like a period 6. Cramps with or without diarrhea If you notice any of the above symptoms, contact our office at [phone] and ask to speak with a nurse. After hours, you can call doctors registry at [phone] OR call [facility] at [phone] and ask to have the doctor electronic calibration technician paged. If you consider this an emergency, dial 9-1-1 or go to your nearest emergency department. NEED HELP? Are you dealing with a violent or abusive relationship? Are you a victim of rape or sexual assult? Call [facility] ([place]) 24 hour Crisis Hotline: 777.465.3689 or 872-082-9819. MANUAL Your Guide to a Healthy manual is now on-line. Visit [email or web address] [email or web address] to download your free copy documented in this encounter [facility] 11-02-2021 History of Presen t illness Narrative NST SUMMARY PROVIDER ASSESSMENT AND INTERPRETATION Indications for NST: Decreased Movement Baseline: 135 Variability: Moderate Accelerations: Present 15 X 15 Decelerations: None Interpretation: Reactive SIGNATURE: Shonna Aguilar DO documented in this encounter [facility] 11-02-2021 Miscellaneous Notes SW- Pt doing well. Having some cramping and irregular ctx's. No vb, lof. DFM today PE: Gen- NAD, well appearing Abd- Soft, gravid, NT Ext- No edema See flowsheet A/p 30 wk gestation - Still considering Tdap as she would like to discuss with - Depression/anxiety screening completed today - OB consent signed - NST reactive and discussed FKC's - Reviewed PTL precautions and reasons to call - RTO 2 wks for growth US and OB visit Shonna Aguilar DO documented in this encounter [facility] 11-02-2021 Instructions Yolis Harris MA - 11/02/2021 9:56 AM EDT SEQUENTIAL SCREENINGS The [facility] offers sequential screenings for women who are interested in screenings for chromosomal abnormalities and certain defects during a . The sequential screen combines ultrasound and blood tests to determine the risk of chromosomal abnormalities, including Down's Syndrome (Trisomy 21) and Trisomy 18, as well as open neural tube defects including spina bifida. Ultrasound examination is performed between 11 weeks and 13 weeks gestational age. Blood tests are drawn after the ultrasound and again later in the between 15 and 21 weeks gestational age. Please let your physician know if you are interested in this testing. It will require an appointment with our chemical treatment plant technician. This is not an ultrasound performed by a physician in our office during a routine visit. SIGNS AND SYMPTOMS OF LABOR 1. Contractions every 10 minutes or more often 2. Clear, pink, or brownish fluid (water) leaking from vagina 3. Feeling that baby is pushing down, pressure 4. Low, dull backache 5. Cramps that feel like a period 6. Cramps with or without diarrhea If you notice any of the above symptoms, contact our office at [phone] and ask to speak with a nurse. After hours, you can call doctors registry at [phone] OR call [facility] at [phone] and ask to have the doctor electronic calibration technician paged. If you consider this an emergency, dial 2-4-6 or go to your nearest emergency department. NEED HELP? Are you dealing with a violent or abusive relationship? Are you a victim of rape or sexual assult? Call [facility] ([facility] 24 hour Crisis Hotline: 926.591.1995 or 889-070-8123. MANUAL Your Guide to a Healthy manual is now on-line. Visit [email or web address] to download your free copy documented in this encounter [facility] 10-19-2021 History of Presen t illness Narrative Indiana Torres 26 year old is here for her injection of Rhophylac. Indiana Torres ABO/RH(D) (no units) Date Value 06/06/2021 A NEGATIVE Antibody Screen (no units) Date Value 09/14/2021 Negative 06/06/2021 NEG Indiana Torres is RH Negative Rhophylac was given without incident. See immunizations for details of immunizations administered today. Provider Dr. Aguilar was present in office at time of injection Indiana Torres was given her Rhophylac pocket card. Teresa Burt RN documented in this encounter [facility] 10-19-2021 Miscellaneous Notes SW- Pt doing well. No ctx, vb, lof. Good FM PE: Gen- NAD, well appearing Abd- Soft, gravid, NT Ext- No edema See flowsheet A/p 28 wk gestation - T&S, 1 hr GTT today - Rhogam today - OB screening completed - LARC declined and signed - Signed up for birthing class - Discussed peds - Planning on - Ordered 32 wk growth US - RTO 2 wks. Ask about Tdap next visit Shonna Aguilar DO documented in this encounter [facility] 10-19-2021 Instructions Lizbeth Nieto Ma - 10/19/2021 8:26 AM EDT SEQUENTIAL SCREENINGS The [facility] offers sequential screenings for women who are interested in screenings for chromosomal abnormalities and certain defects during a . The sequential screen combines ultrasound and blood tests to determine the risk of chromosomal abnormalities, including Down's Syndrome (Trisomy 21) and Trisomy 18, as well as open neural tube defects including spina bifida. Ultrasound examination is performed between 11 weeks and 13 weeks gestational age. Blood tests are drawn after the ultrasound and again later in the between 15 and 21 weeks gestational age. Please let your physician know if you are interested in this testing. It will require an appointment with our chemical treatment plant technician. This is not an ultrasound performed by a physician in our office during a routine visit. SIGNS AND SYMPTOMS OF LABOR 1. Contractions every 10 minutes or more often 2. Clear, pink, or brownish fluid (water) leaking from vagina 3. Feeling that baby is pushing down, pressure 4. Low, dull backache 5. Cramps that feel like a period 6. Cramps with or without diarrhea If you notice any of the above symptoms, contact our office at [phone] and ask to speak with a nurse. After hours, you can call doctors registry at [phone] OR call [facility] at [phone] and ask to have the doctor electronic calibration technician paged. If you consider this an emergency, dial 9--2 or go to your nearest emergency department. NEED HELP? Are you dealing with a violent or abusive relationship? Are you a victim of rape or sexual assult? Call [facility] ([place]) 24 hour Crisis Hotline: 527.726.6969 or 272-752-8184. MANUAL Your Guide to a Healthy manual is now on-line. Visit [email or web address] [email or web address] to download your free copy documented in this encounter [facility] 10-17-2021 Miscellaneous Notes Filed Patient coming in on Sunday for COLETTE, she needs orders for 1 hour glucose and type and screen placed to have done prior to appointment. Please review and sign orders. Patient will need notified to come in prior to appointment for these labs. Yolis Harris MA documented in this encounter [facility] 09-19-2021 Miscellaneous Notes Called Indiana Torres and identified by name and date of . Indiana Torres was informed of negative Non-Invasive Testing (NIPT) results for Trisomy 21, Trisomy 18 and Trisomy 13. Patient was also notified of the result of no sex chromosome aneuploidy detected. Patient does not wish to know reported sex. Reviewed with patient Indiana Torres that NIPT is considered screening and not diagnostic, so this result greatly reduces, but does not eliminate the chance that the fetus could have trisomy 21, trisomy 18, trisomy 13 or sex chromosome aneuploidy. Indiana Torres indicated understanding this information. Patient advised to follow up with AFP neural tube defect screening (blood draw) at 16-18 weeks gestation and 18-20 week detailed anatomy ultrasound. Also instructed to follow-up with Primary OB Provider. Patricia Sauceda RN documented in this encounter [facility] 09-14-2021 Miscellaneous Notes SJ-S: Indiana Torres is a 26 year old female who presents at 23w2d with ROSIE: 01/09/2022, by Last Menstrual Period for a routine visit. Good FM. Denies headache, visual changes, chest pain, shortness of breath, vaginal bleeding, leakage of fluid, or dysuria. Feeling well, no complaints. O: See flow sheet Gen: No apparent distress Abd: Gravid, nontender S=D, 3lb weight gain since last visit. ASSESSMENT/PLAN: 1. 23 weeks gestation of 2. Choroid plexus cyst of fetus on ultrasound P: 1) PTL precautions reviewed and when to call 2) RTO in 4 weeks 3) Reviewed results of anatomy US and unilateral choroid plexus cyst. Discussed option of [id number] and limitations. All questions answered. Would like [id number]. 4) CBC, RPR, and 1hr GCT next visit 5) Tdap next visit 6) Rhogam next visit. Reviewed and handout given. Eamon Wilson APRN.CNM documented in this encounter [facility] 09-14-2021 Instructions Linda Agustin MA - 09/14/2021 8:56 AM EDT Rh-Negative Blood Type and What is blood type? Your blood type tells you about markers on the surface of your red blood cells. The red cells in your blood can be A, B, AB, or O. The red blood cells also have a protein that is called Rh on the surface of the cell. Your blood can be Rh positive, which means that you have the Rh protein, or Rh negative, which means that you do not have the Rh protein. The letter of your blood group plus the Rh makes your blood type. You can be O+, O?, A+, A?, B+, B?, AB+, or AB?. A test that tells you your blood type is done at your first visit and usually when you are admitted to the hospital for labor if you are planning a hospital . Why is my blood type important? If you ever need a blood transfusion, you should be given blood that is your same blood type. You can become very sick if you are given blood that is a different blood type unless it is O blood, which will not cause harm to people who have other blood types. I am Rh negative.What does this mean for my ? Being Rh negative means that you do not have Rh proteins on your red blood cells. If your baby is Rh positive and you get a small amount of your baby s blood into your circulation (bloodstream) when you are or when you give , your body can make antibodies that hurt and kill red blood cells that are Rh positive. The most likely time that you would be exposed to your baby s blood is when yougive . This is why being Rh negative will not harm your baby during your first . But in your next , the antibodies that you made when you were exposed to Rh-positive blood at your first can cross the placenta and attack the Rh-positive red blood cells, if your next baby has Rh-positive blood. This is called Rh sensitization. Rh sensitization can cause anemia (low iron in the blood), miscarriage, stillbirth, or a serious illness in the baby that is called hemolytic disease of the . Fortunately, Rh sensitization is very rare because women who are Rh negative can get a shot that stops their body from making antibodies to Rh-positive blood. What is RhoGAM? RhoGAM is a medicine that stops your blood from making antibodies that attack Rh-positive blood cells. RhoGAM is a sterilized solution made from human blood that contains a very small amount of Rh-positive proteins. These proteins keep your immune system from making permanent antibodies to Rh-positive blood. They do not hurt your baby. RhoGAM is given as an injection (shot). When do I get RhoGAM? Although the chance of your blood and the baby s blood mixing is highest at the time that you give , which rarely happens, it can also happen during the last trimester of your , when your placenta is growing and the membranes that separate your blood from your baby s blood are very thin. For this reason, RhoGAM is given at 28 weeks of to protect you for the rest of your . RhoGAMworks for about 13 weeks. Soon after you give , your baby s blood will be tested for Rh. If your baby has Rh-positive blood, you will get another dose of RhoGAM within 72 hours after you give . If your baby s blood is Rh negative, you will not need the second RhoGAM shot. Are there any other times that I might need RhoGAM? RhoGAM is also given anytime that your blood could come into contact with Rh-positive blood cells, such as: Any vaginal bleeding during Miscarriage or 0792-4135//$36.00 doi:10.1111/jmwh.75903 c 2013 by the [employer] www.sharewithwomen.org Chorionic villi sampling or amniocentesis (tests for defects) Injury to your abdomen (belly), such as a car accident or fall, during External version (turning a breech baby so the baby is head first) If you are Rh negative and any of these things happen to you, you should contact your health care provider right away. You should get a RhoGAM shot within 72 hours of the possible exposure to Rh-positive blood for the shot to work best. How safe is RhoGAM? RhoGAM is very safe. It is recommended for all women with Rh-negative blood type and has been used for about 50 years. Although RhoGAM is made from human blood, only the very small Rh piece is used. There is a very rare chance that you could get an infection such as HIV or hepatitis from RhoGAM, but this is so rare that there are no reports of it happening. There is also a very rare chance that you will have an allergic reaction to the RhoGAM that causes fever and chills or shortness of breath. It is more common to have a small reaction like redness or swelling where the RhoGAM was injected, usually your upper arm or buttocks. It is important to know that the risk of developing Rh sensitization is much higher than the risk of problems from the RhoGAM shot. Once that happens, all future pregnancies are at risk for the baby being very sick or dying if the baby is Rh positive. Therefore, not taking RhoGAMismuchmore dangerous than taking RhoGAM. Are there women who should not get RhoGAM? If you have hemolytic anemia, or you have had an allergic reaction to a shot of immune globulin, or you already have Rh sensitization, you should not get the RhoGAM shot. Is there anything else I need to know about RhoGAM? It is best not to get some vaccines within 3 months of having the RhoGAM shot. This is not usually a problem because the vaccines that do not work well after getting a RhoGAM shot are never given to women. This is something to think about if you are planning to travel out of the country within 3 months after giving to an area where you need a vaccine called a live-virus vaccine. If you are in this situation, talk to your health care provider before you are given the RhoGAM shot. Also, if you have any mu-ism or cultural concerns about taking a blood product, you should talk to your health care provider or circulation crew leader about the risks and benefits. What if I do not choose to get RhoGAM? About one in5 womenwho donot get RhoGAMwill get Rh sensitization, which cannot be fixed once it happens. If you do not get RhoGAM during , you should get your blood drawn regularly in the last trimester to see if you have become Rh sensitized. If you do become sensitized, tests to see how your baby is handling the problem will be offered. If the baby has a serious problem, you may need to be induced to give early. For More Information [employer]: Rh Disease http://www.marchofdimes.com/baby /rh-disease.aspx How RhoGAMWorks http://www.rhogam.com/images/con tent/Brwymbji-Ffeyd-Ogpkr.jpg [place]: Blood Types http://www.redcrossblood.org/agustina ri-uxite-hzriv/blood-types This page may be reproduced for noncommercial use by health customer care manager to share with clients.Any other reproduction is subject to the Journal ofMidwifery&Women s Health s approval.The information and recommendations appearing on this page are appropriate in most instances, but they are not a substitute for medical diagnosis. For specific information concerning your personal medical condition, the Journal of Midwifery & Women s Health suggests that you consult your health care provider. SIGNS AND SYMPTOMS OF LABOR 1. Contractions every 10 minutes or more often 2. Clear, pink, or brownish fluid (water) leaking from vagina 3. Feeling that baby is pushing down, pressure 4. Low, dull backache 5. Cramps that feel like a period 6. Cramps with or without diarrhea If you notice any of the above symptoms, contact our office at [phone] and ask to speak with a nurse. After hours, you can call doctors registry at [phone] OR call [facility] at [phone] and ask to have the doctor electronic calibration technician paged. If you consider this an emergency, dial 7--6 or go to your nearest emergency department. NEED HELP? Are you dealing with a violent or abusive relationship? Are you a victim of rape or sexual assult? Call [facility] ([place]) 24 hour Crisis Hotline: 947.575.2932 or 510-982-2012. MANUAL Your Guide to a Healthy manual is now on-line. Visit [email or web address]/HealthyPregn ancyGuide to download your free copy documented in this encounter [facility] 08-29-2021 Miscellaneous Notes Contacted pt, she wants to discuss further with you. She has not Internet on her phone and no camera capability on her home computer. Pt scheduled for a telemed visit so that she can further discuss with you. Edel Huertas LPN See if she would like a virtual visit or in person and we can discuss further. Thanks, Eamon Wilson APRN.CNM Spoke with pt and she is thinking that they want to hold off on this testing. She is wondering if she could have another ultrasound at her appointment in 4 weeks to reevaluate this. Pt wanting to know if this something will improve or is this really cause for concern. Please advise. Edel Huertas LPN Patient offered NIPT due to anatomy US results. I counseled her on anatomy results and testing. Please follow up with her if she does not respond in the next few days. Information given on NIPT and to check with pricing. If she desires testing, please get order from [facility]. Thank you, Eamon Wilson APRN.CNM documented in this encounter [facility] Diagnosis 23 weeks gestation of - Primary state, incidental Choroid plexus cyst of fetus on ultrasound Abnormal findings on screening [facility] Diagnosis Encounter for supervision of normal first in second trimester- Primary Supervision of normal first [facility] Diagnosis Normal first in third trimester- Primary 28 weeks gestation of state, incidental Choroid plexus cyst of fetus in nieto Rh negative state in antepartum period Rhesus isoimmunization affecting management of mother, antepartum condition [facility] Diagnosis 30 weeks gestation of - Primary state, incidental Normal first in third trimester Decreased movements in third trimester, single or unspecified fetus [facility] Diagnosis Choroid plexus cyst of fetus affecting care of mother, antepartum, single or unspecified fetus- Primary [facility] Diagnosis Uterine size date discrepancy, third trimester- Primary 36 weeks gestation of state, incidental [facility] Diagnosis Normal first in third trimester- Primary 36 weeks gestation of state, incidental [facility] Diagnosis 37 weeks gestation of - Primary state, incidental [facility] Diagnosis 38 weeks gestation of - Primary state, incidental [facility] Diagnosis care and examination immediately after delivery- Primary Acute left-sided low back pain without sciatica Dysuria documented in this encounter [facility] note* Diagnosis care and examination- Primary Routine follow-up documented in this encounter [facility] note* Diagnosis Hymenal remnant- Primary Other specified noninflammatory disorder of vagina Vaginal laceration, old Old vaginal laceration documented in this encounter [facility] note* Diagnosis Granulation tissue at obstetrical laceration site- Primary Other abnormal granulation tissue documented in this encounter [facility] note* Diagnosis Spotting complicating , first trimester- Primary [facility] Diagnosis Spotting complicating , first trimester- Primary documented in this encounter [facility] note* Diagnosis Short interval between pregnancies affecting , antepartum- Primary Spotting in early Spotting complicating , antepartum condition or complication History of depression, currently with other poor obstetric history History of episiotomy Rh negative state in antepartum period Rhesus isoimmunization affecting management of mother, antepartum condition Skin rash Rash and other nonspecific skin eruption Family history of congenital heart defect Family history of congenital anomalies documented in this encounter [facility] note* Diagnosis 9 weeks gestation of - Primary state, incidental Vaginal discharge Leukorrhea, not specified as infective Friable cervix Other specified noninflammatory disorder of cervix Blood type, Rh negative Other specified conditions influencing health status Rh negative state in antepartum period Rhesus isoimmunization affecting management of mother, antepartum condition documented in this encounter [facility] note* Diagnosis 12 weeks gestation of - Primary state, incidental Bloody vaginal discharge Other specified noninflammatory disorder of vagina BV (bacterial vaginosis) Vaginitis and vulvovaginitis, unspecified Encounter for supervision of other normal in first trimester documented in this encounter [facility] note* Diagnosis Encounter for supervision of other normal in second trimester- Primary 14 weeks gestation of state, incidental documented in this encounter [facility] note* Diagnosis Annual physical exam- Primary Routine general medical examination at a health care facility Dysfunction of right eustachian tube Oral candidiasis Candidiasis of mouth documented in this encounter [facility] note* Diagnosis Short interval between pregnancies affecting , antepartum- Primary 18 weeks gestation of state, incidental Encounter for repeat ultrasound of pyelectasis, antepartum, single or unspecified fetus documented in this encounter [facility] note* Diagnosis Encounter for anatomic survey- Primary 18 weeks gestation of state, incidental Pyelectasis of fetus on ultrasound Abnormal findings on screening documented in this encounter [facility] note* Diagnosis 22 weeks gestation of - Primary state, incidental Short interval between pregnancies affecting , antepartum documented in this encounter [facility] note* Diagnosis 26 weeks gestation of - Primary state, incidental Encounter for supervision of other normal in second trimester [facility]* Diagnosis Encounter for repeat ultrasound of pyelectasis, antepartum, single or unspecified fetus [facility] Diagnosis Encounter for supervision of other normal in third trimester- Primary 28 weeks gestation of state, incidental documented in this encounter [facility] note* Diagnosis Encounter for supervision of other normal in third trimester- Primary 31 weeks gestation of state, incidental documented in this encounter [facility] for referral (narrative)* Diagnostic Procedure Only (Routine) - Authorized Specialty Diagnoses / Procedures Referred By Amy andrews Referred To Contact [facility] Diagnoses Normal first in third trimester 28 weeks gestation of Choroid plexus cyst of fetus in nieto Procedures OBSTETRIC ULTRASOUND WHI US PREG UTERUS AFTER 1ST TRIMEST GESTATION Shonna Aguilar MD [address] [place] [address] [place] [address] Referral ID Status Reason Start Date Expiration Date Visits Requested Visits Authorized [id number] Authorized Auto-Generat ed Referral 10/19/2021 10/19/2022 [facility] Diagnostic Procedure Only (Routine) - Authorized Specialty Diagnoses / Procedures Referred By Amy andrews Referred To Contact [facility] Diagnoses Spotting complicating , first trimester Procedures OBSTETRIC ULTRASOUND WHI US PREG UTERUS AFTER 1ST TRIMEST GESTATION Kelsy Diggs APRN.CNM [address] [place] [address] [facility] [address] [place] [address] Referral ID Status Reason Start Date Expiration Date Visits Requested Visits Authorized [id number] Authorized Auto-Generat ed Referral 12/14/2022 12/14/2022 1 1 [facility] for referral (narrative)* Diagnostic Procedure Only (Routine) - Pending Review Specialty Diagnoses / Procedures Referred By Contac t Referred To Contact [facility] Diagnoses 9 weeks gestation of Procedures OBSTETRIC ULTRASOUND WHI US PREG UTERUS AFTER 1ST TRIMEST GESTATION Eamon Wilson APRN.CNM [address] [place] [address] [facility] [address] [place] [address] Referral ID Status Reason Start Date Expiration Date Visits Requested Visits Authorized [id number] Pending Review Auto-Generat ed Referral 12/19/2022 12/19/2023 1 1 [facility] for referral (narrative)* Diagnostic Procedure Only (Routine) - Pending Review Specialty Diagnoses / Procedures Referred By Contac t Referred To Contact [facility] Diagnoses Encounter for repeat ultrasound of pyelectasis, antepartum, single or unspecified fetus Procedures OBSTETRIC ULTRASOUND WHI US PREG UTERUS AFTER 1ST TRIMEST GESTATION Kaley Grey MD [address] [place] [address] [facility] [address] [place] [address] Referral ID Status Reason Start Date Expiration Date Visits Requested Visits Authorized [id number] Pending Review Auto-Generat ed Referral 02/22/2023 02/22/2024 1 1 [facility] Concerns Problem Noted Date Diagnosed Date [facility] - [facility] 12/19/2022 [place] - [place] 12/19/2022 Problem Noted Date Diagnosed Date [facility] Education - [facility] 12/19/2022 [place] - [place] 12/19/2022 Problem Noted Date Diagnosed Date [facility] Education - [facility] 12/19/2022 [place] - [place] 12/19/2022 Problem Noted Date Diagnosed Date [facility] Education - [place] 12/19/2022 [place] - [place] 12/19/2022 Problem Noted Date Diagnosed Date [facility] Education - [facility] 12/19/2022 [place] - [place] 12/19/2022 Problem Noted Date Diagnosed Date [facility] Education - [facility] 12/19/2022 Education - [place] 12/19/2022 Problem Noted Date Diagnosed Date [facility] Education - COMMON 12/19/2022 Education - [place] 12/19/2022 Problem Noted Date Diagnosed Date [facility] - [facility] 12/19/2022 [place] - [place] 12/19/2022 Problem Noted Date Diagnosed Date [facility] Education - [facility] 12/19/2022 [place] - [place] 12/19/2022 Problem Noted Date Diagnosed Date [facility] - [facility] 12/19/2022 [place] - [place] 12/19/2022 Summary Purpose Family History No Family History Records FoundNo Family History Records Found Advance Directives No Advanced Directives Records FoundNo Advanced Directives Records Found Reason for Referral Specialty Diagnoses / Procedures Referred By Amy andrews Referred To Contact [facility] Diagnoses Encounter for supervision of other normal in third trimester 28 weeks gestation of Ronald Neil MD [address] [place] [address] [facility] [address] [place] [address] Referral ID Status Reason Start Date Expiration Date V isits Requested Visits Authorized [id number] Pending Review 05/01/2023 07/30/2023 1 1 Additional Source Comments Source Comments (unrecognize d section and content) In the event this informatio n is protected by the Federal Confidentiality of Alcohol and Drug Abuse Patient Records regulations: The Federal rules restrict any use of the information to criminally investigate or prosecute any alcohol or drug abuse patient.[facility] the event this information is protected by the Federal Confidentiality of Alcohol and Drug Abuse Patient Records regulations: The Federal rules restrict any use of the information to criminally investigate or prosecute any alcohol or drug abuse patient.[facility] the event this information is protected by the Federal Confidentiality of Alcohol and Drug Abuse Patient Records regulations: The Federal rules restrict any use of the information to criminally investigate or prosecute any alcohol or drug abuse patient.[facility] the event this information is protected by the Federal Confidentiality of Alcohol and Drug Abuse Patient Records regulations: The Federal rules restrict any use of the information to criminally investigate or prosecute any alcohol or drug abuse patient.[facility] the event this information is protected by the Federal Confidentiality of Alcohol and Drug Abuse Patient Records regulations: The Federal rules restrict any use of the information to criminally investigate or prosecute any alcohol or drug abuse patient.[facility] the event this information is protected by the Federal Confidentiality of Alcohol and Drug Abuse Patient Records regulations: The Federal rules restrict any use of the information to criminally investigate or prosecute any alcohol or drug abuse patient.[facility] the event this information is protected by the Federal Confidentiality of Alcohol and Drug Abuse Patient Records regulations: The Federal rules restrict any use of the information to criminally investigate or prosecute any alcohol or drug abuse patient.[facility] the event this information is protected by the Federal Confidentiality of Alcohol and Drug Abuse Patient Records regulations: The Federal rules restrict any use of the information to criminally investigate or prosecute any alcohol or drug abuse patient.[facility] the event this information is protected by the Federal Confidentiality of Alcohol and Drug Abuse Patient Records regulations: The Federal rules restrict any use of the information to criminally investigate or prosecute any alcohol or drug abuse patient.[facility] the event this information is protected by the Federal Confidentiality of Alcohol and Drug Abuse Patient Records regulations: The Federal rules restrict any use of the information to criminally investigate or prosecute any alcohol or drug abuse patient.[facility] the event this information is protected by the Federal Confidentiality of Alcohol and Drug Abuse Patient Records regulations: The Federal rules restrict any use of the information to criminally investigate or prosecute any alcohol or drug abuse patient.[facility] the event this information is protected by the Federal Confidentiality of Alcohol and Drug Abuse Patient Records regulations: The Federal rules restrict any use of the information to criminally investigate or prosecute any alcohol or drug abuse patient.[facility] the event this information is protected by the Federal Confidentiality of Alcohol and Drug Abuse Patient Records regulations: The Federal rules restrict any use of the information to criminally investigate or prosecute any alcohol or drug abuse patient.[facility] Center[facility] the event this information is protected by the Federal Confidentiality of Alcohol and Drug Abuse Patient Records regulations: The Federal rules restrict any use of the information to criminally investigate or prosecute any alcohol or drug abuse patient.[facility] the event this information is protected by the Federal Confidentiality of Alcohol and Drug Abuse Patient Records regulations: The Federal rules restrict any use of the information to criminally investigate or prosecute any alcohol or drug abuse patient.[facility] CenterIn the event this information is protected by the Federal Confidentiality of Alcohol and Drug Abuse Patient Records regulations: The Federal rules restrict any use of the information to criminally investigate or prosecute any alcohol or drug abuse patient.[facility] CenterIn the event this information is protected by the Federal Confidentiality of Alcohol and Drug Abuse Patient Records regulations: The Federal rules restrict any use of the information to criminally investigate or prosecute any alcohol or drug abuse patient.[facility] CenterIn the event this information is protected by the Federal Confidentiality of Alcohol and Drug Abuse Patient Records regulations: The Federal rules restrict any use of the information to criminally investigate or prosecute any alcohol or drug abuse patient.[facility] CenterIn the event this information is protected by the Federal Confidentiality of Alcohol and Drug Abuse Patient Records regulations: The Federal rules restrict any use of the information to criminally investigate or prosecute any alcohol or drug abuse patient.[facility] CenterIn the event this information is protected by the Federal Confidentiality of Alcohol and Drug Abuse Patient Records regulations: The Federal rules restrict any use of the information to criminally investigate or prosecute any alcohol or drug abuse patient.[facility] CenterIn the event this information is protected by the Federal Confidentiality of Alcohol and Drug Abuse Patient Records regulations: The Federal rules restrict any use of the information to criminally investigate or prosecute any alcohol or drug abuse patient.[facility] CenterIn the event this information is protected by the Federal Confidentiality of Alcohol and Drug Abuse Patient Records regulations: The Federal rules restrict any use of the information to criminally investigate or prosecute any alcohol or drug abuse patient.[facility] CenterIn the event this information is protected by the Federal Confidentiality of Alcohol and Drug Abuse Patient Records regulations: The Federal rules restrict any use of the information to criminally investigate or prosecute any alcohol or drug abuse patient.[facility] CenterIn the event this information is protected by the Federal Confidentiality of Alcohol and Drug Abuse Patient Records regulations: The Federal rules restrict any use of the information to criminally investigate or prosecute any alcohol or drug abuse patient.[facility] CenterIn the event this information is protected by the Federal Confidentiality of Alcohol and Drug Abuse Patient Records regulations: The Federal rules restrict any use of the information to criminally investigate or prosecute any alcohol or drug abuse patient.[facility] CenterIn the event this information is protected by the Federal Confidentiality of Alcohol and Drug Abuse Patient Records regulations: The Federal rules restrict any use of the information to criminally investigate or prosecute any alcohol or drug abuse patient.[facility] CenterIn the event this information is protected by the Federal Confidentiality of Alcohol and Drug Abuse Patient Records regulations: The Federal rules restrict any use of the information to criminally investigate or prosecute any alcohol or drug abuse patient.[facility] CenterIn the event this information is protected by the Federal Confidentiality of Alcohol and Drug Abuse Patient Records regulations: The Federal rules restrict any use of the information to criminally investigate or prosecute any alcohol or drug abuse patient.[facility] CenterIn the event this information is protected by the Federal Confidentiality of Alcohol and Drug Abuse Patient Records regulations: The Federal rules restrict any use of the information to criminally investigate or prosecute any alcohol or drug abuse patient.[facility] CenterIn the event this information is protected by the Federal Confidentiality of Alcohol and Drug Abuse Patient Records regulations: The Federal rules restrict any use of the information to criminally investigate or prosecute any alcohol or drug abuse patient.[facility] CenterIn the event this information is protected by the Federal Confidentiality of Alcohol and Drug Abuse Patient Records regulations: The Federal rules restrict any use of the information to criminally investigate or prosecute any alcohol or drug abuse patient.[facility] CenterIn the event this information is protected by the Federal Confidentiality of Alcohol and Drug Abuse Patient Records regulations: The Federal rules restrict any use of the information to criminally investigate or prosecute any alcohol or drug abuse patient.[facility] CenterIn the event this information is protected by the Federal Confidentiality of Alcohol and Drug Abuse Patient Records regulations: The Federal rules restrict any use of the information to criminally investigate or prosecute any alcohol or drug abuse patient.[facility] Reason for Visit (unrecogniz ed section and content) Reason Comments NIPT results Reason Comments Appointment Reason Onset Date Comments Care 10/19/2021 Reason Onset Date Comments Care 11/02/2021 Reason Comments US Specialty Diagnoses / Procedures Referred By Contac t Referred To Contact [facility] Diagnoses Normal first in third trimester 28 weeks gestation of Choroid plexus cyst of fetus in nieto Procedures OBSTETRIC ULTRASOUND WHI US PREG UTERUS AFTER 1ST TRIMEST GESTATION Shonna Aguilar MD [address] [place] [address] [facility] [address] [place] [address] Referral ID Status Reason Start Date Expiration Date V isits Requested Visits Authorized [id number] Closed Auto-Generate d Referral 10/19/2021 10/19/2022 1 1 Specialty Diagnoses / Procedures Referred By Contac t Referred To Contact [facility] Diagnoses 34 weeks gestation of Normal first in third trimester Uterine size-date discrepancy, third trimester Procedures OBSTETRIC ULTRASOUND WHI US PREG UTERUS AFTER 1ST TRIMEST GESTATION Shonna Aguilar MD [address] [facility] [place] [address] [facility] [address] [place] [address] Referral ID Status Reason Start Date Expiration Date V isits Requested Visits Authorized [id number] Closed Auto-Generate d Referral 11/28/2021 12/13/2021 1 1 Reason Onset Date Comments Care 12/13/2021 Reason Onset Date Comments Care 12/19/2021 Reason Comments NIPT Reason Onset Date Comments Care 12/26/2021 Reason Comments Ob Delivery Note Reason Comments Routine Reason Comments Vaginal Problem Reason Comments Patient Question Reason Comments Discussion Reason Comments OB-spotting Reason Comments Care Reason Onset Date Comments Care 01/09/2023 Vaginal Problem White chunky dis charge with pink blood tinge for 8 days off and on Reason Onset Date Comments Care 01/23/2023 Reason Comments New Patient Ear Fullness Seems always get plu gged when Thrush Has been on medicati on for about a week but is not any better Heartburn But not sure if from Health Maintenance Hep c or hiv screeni ng- refuseCovid vaccine- not doneMmr vaccine- done as childVaricella vaccine- had chicken pox Hpv vaccine- not donePap- current sees [facility] Reason Onset Date Comments Care 02/22/2023 Specialty Diagnoses / Procedures Referred By Contac t Referred To Contact [facility] Diagnoses 9 weeks gestation of Encounter for supervision of normal , unspecified, unspecified trimester Procedures OBSTETRIC ULTRASOUND WHI US PREG UTERUS AFTER 1ST TRIMEST GESTATION Eamon Wilson APRN.CASANDRA [address] [place] [address] [facility] [address] [place] [address] Referral ID Status Reason Start Date Expiration Date Visits Requested Visits Authorized [id number] Authorized Auto-Generat ed Referral 02/22/2023 06/10/2023 20 20 Reason Onset Date Comments Care 03/22/2023 Reason Onset Date Comments Care 04/16/2023 Specialty Diagnoses / Procedures Referred By Contac t Referred To Contact [facility] Diagnoses Encounter for repeat ultrasound of pyelectasis, antepartum, single or unspecified fetus Procedures OBSTETRIC ULTRASOUND WHI US PREG UTERUS AFTER 1ST TRIMEST GESTATION Kaley Grey MD [address] [place] [address] [facility] [address] [place] [address] Referral ID Status Reason Start Date Expiration Date V isits Requested Visits Authorized [id number] Closed Auto-Generate d Referral 02/22/2023 02/22/2024 1 1 Reason Onset Date Comments Care 05/01/2023 Specialty Diagnoses / Procedures Referred By Contac t Referred To Contact [facility] Diagnoses Encounter for supervision of other normal in third trimester 28 weeks gestation of Ronald Neil MD [address] [place] [address] [address] Referral ID Status Reason Start Date Expiration Date V isits Requested Visits Authorized [id number] Pending Review 05/01/2023 07/30/2023 1 1 Reason Onset Date Comments Care 05/22/2023 Care Teams (unrecognized sec tion and content) Test Department Helper Relationship Specialty Start Date End Date Pcp, No PCP - General 12/24/21 07/11/22 Test Department Helper Relationship Specialty Start Date End Date Pcp, No PCP - General 12/24/21 07/11/22 Test Department Helper Relationship Specialty Start Date End Date Anju Koenig MD [address] [place] [address], [place] [phone] PCP - General Family Medicine 01/29/23 INFORMATION SOURCE (unrecogn ized section and content) DATE CREATED AUTHOR AUTHOR'S ORGANIZ ATION 07/11/2023 [facility] FOR RECORDS PERTAINING TO PATIENTS WHO ARE OR HAVE BEEN ENROLLED IN A CHEMICAL DEPENDENCY/SUBSTANCEABUSE PROGRAM, SOME INFORMATION MAY BE OMITTED. This clinical summary was aggregated from multiple sources. Caution should be exercised in using it in the provision of clinical care. This summary normalizes information from multiple sources, and as a consequence, information in this document may materially change the coding, format and clinical context of patient data. In addition, data may be omitted in some cases. CLINICAL DECISIONS SHOULD BE BASED ON THE PRIMARY CLINICAL RECORDS. [facility]. provides no warranty or guarantee of the accuracy or completeness of information in this document.
[2023-07-18] MEDS: Oxytocin 15 Units/NS 250ml 15 UNITS/250 ML IV.SOLN 83 UNITS IV (19:41)
[2023-07-19 04:19] VITALS: BP 113/75; PULSE 82; RESP 16; TEMP 36.6; O2SAT 97
[2023-07-19 08:40] VITALS: BP 108/73; PULSE 78; RESP 16; TEMP 36.6; O2SAT 98
[2023-07-19 11:50] VITALS: BP 119/68; PULSE 101; RESP 16; TEMP 36.6; O2SAT 98
--- NOTE | 2023-07-19 13:25 | PN.OBGYN_ITS ---
Subjective Subjective Patient is doing well. Pain is well-controlled. She is ambulating and voiding without difficulty. Tolerating regular diet. Lochia is normal. She is breast- feeding without complaints. She denies chest pain, shortness of breath, leg pain. She desires to go home today. Objective Data Objective Data Vital Signs: Vital Signs Temp Pulse Resp BP Pulse Ox O2 Del Method 97.8 F 101 H 16 119/68 98 Room Air 07/19/23 11:50 07/19/23 11:50 07/19/23 11:50 07/19/23 11:50 07/19/23 11:50 07/19/23 11:50 Oxygen Delivery Method Room Air Weight: 180 lb 8 oz Body Mass Index (BMI) 25.2 Intake & Output: Intake and Output for Last 24 Hours 07/17/23 07/18/23 07/19/23 23:59 23:59 23:59 Intake Total 689.73 / 689.73 250 / 250 Output Total 1100 / 1100 Balance -410.27 / -410.27 250 / 250 Lab / Micro Data 07/18/23 16:25 Labs: Laboratory Results - last 24 hr 07/18/23 16:00: WBC Cancelled, Corrected WBC Cancelled, RBC Cancelled, Hgb Cancelled, Hct Cancelled, MCV Cancelled, MCH Cancelled, MCHC Cancelled, RDW Std Deviation Cancelled, RDW Coeff of Jose Alfredo Cancelled, Plt Count Cancelled, MPV Cancelled, Immature Gran % (Auto) Cancelled, Neut % (Auto) Cancelled, Lymph % (Auto) Cancelled, [place] % (Auto) Cancelled, Eos % (Auto) Cancelled, Baso % (Auto) Cancelled, Absolute Neuts (auto) Cancelled, Absolute Lymphs (auto) Cancelled, Total Counted Cancelled, Neutrophils % (Manual) Cancelled, Band Neutrophils % Cancelled, Lymphocytes % (Manual) Cancelled, Monocytes % (Manual) Cancelled, Eosinophils % (Manual) Cancelled, Basophils % (Manual) Cancelled, Metamyelocytes % Cancelled, Myelocytes % Cancelled, Promyelocytes % Cancelled, Blast Cells % Cancelled, Plasma Cell % (Manual) Cancelled, Other Cells % Cancelled, Nucleated RBC % Cancelled, Nucleated RBCs/100 WBC Cancelled, Differential Comment Cancelled, Diff Path Review Cancelled, Hypersegmented Neuts Cancelled, Atypical Lymphocytes Cancelled, Reactive Lymphocytes Cancelled, Smudge Cells Cancelled, Toxic Granulation Cancelled, Toxic Vacuolation Cancelled, Dohle Bodies Cancelled, Serafin Rods Cancelled, Platelet Estimate Cancelled, Plt Morphology Comment Cancelled, RBC Morphology Cancelled 07/18/23 16:00: RBC Morphology Cancelled, Polychromasia Cancelled, Hypochromasia Cancelled, Poikilocytosis Cancelled, Basophilic Stippling Cancelled, Anisocytosis Cancelled, Microcytosis Cancelled, Macrocytosis Cancelled, Spherocytes Cancelled, Sickle Cells Cancelled, Target Cells Cancelled, Tear Drop Cells Cancelled, Ovalocytes Cancelled, Stomatocytes Cancelled, Schwartz-Dakota Bodies Cancelled, [place] Cells Cancelled, Bite Cells Cancelled, Crenated Cell Cancelled, Acanthocytes (Spur) Cancelled, Rouleaux Cancelled, Schistocytes Cancelled, Syphilis Total Ab Non-reactive, Blood Type Cancelled, Antibody Screen Cancelled 07/18/23 16:25: WBC 8.6, RBC 3.84 L, Hgb 10.8 L, Hct 33.9 L, MCV 88.3, MCH 28.1, MCHC 31.9 L, RDW Std Deviation 44.1 H, RDW Coeff of Jose Alfredo 13.9, Plt Count 195, MPV 9.6, Immature Gran % (Auto) 1.200 H, Neut % (Auto) 74.4 H, Lymph % (Auto) 15.9 L , [place] % (Auto) 7.7, Eos % (Auto) 0.5, Baso % (Auto) 0.3, Absolute Neuts (auto) 6.4, Absolute Lymphs (auto) 1.37, Nucleated RBC % 0 Physical Exam Const alert and no apparent distress General Appearance: comfortable HEENT normocephalic GI soft to palpation, non-tender and non-distended GI Narrative: FF@U-1 Extremity no calf tenderness Assessment & Plan (1) Perineal laceration, second degree, delivered: (2) (spontaneous vaginal delivery): PLAN: Patient is day 1 from a vaginal delivery. She desires to go home today. Discharge instructions reviewed. She is breast-feeding and meeting milestones for discharge.
--- NOTE | 2023-07-19 13:27 | DCINST_ITS ---
Discharge Instructions Diet Discharge Diet: No restrictions Activity Discharge Activity: May Drive May resume sexual activity in: 6 weeks Ice area for (Minutes): 15 Weight Bearing Status: Weight bearing as tolerated Lifting Restrictions: nothing heavier than baby Dressing / Incision Call your doctor if you observe: Fever of 101 or Higher, Coldness, Increased Pain, Numbness or Tingling, Change in Color, Inability to urinate, Inability to have a bowel movement, Using more than 1 pad per hour, Shortness of breath, Dizziness, Fainting spells, Swelling in the ankles, Chest pain, Prolonged hiccupping, Increased palpitations (irregular heartbeat), Calf discomfort and Uncontrolled pain Cleanse incision/area with: Soap & Water Follow Up Care Please Follow Up With: Kelsy Cook CNM When: 1-2 weeks for early visit 6 weeks for exam Test Results: Test results from this visit will be discussed in further detail at your follow- up appointment, if applicable. Discharge Plan Admission Admit Date/Time: 07/18/23 15:15 Primary Reason for Your Visit: delivery Attending Provider: Kelsy Cook Primary Care Provider: Ishmael Castañeda Instructions Patient Instructions: After a Vaginal Discharge Orders/Prescriptions Prescriptions: No Action DHA 200 mg capsule PO Referrals / Follow Up: Ishmael Castañeda MD [Primary Care Provider] - Disposition Disposition (needs filled in before D/C Order can be placed): Home, Self Care
--- NOTE | 2023-07-19 16:23 | CASEMGMT ---
Social Work Assessment Labor and Delivery Unit Patient Address: [id number] [place] [address] Phone number: [phone] Date of Referral: 07/18/23 Time of Referral:? 1941 Referred By: Kelsy Cook Date of Intervention: ??07/19/23 Time of Intervention:? 1429 Reason for Referral:? mental health Sw complete chart review and acknowledges social work consult. Sw presented to bedside and introduced self to mother of baby (MOB- [place]) and father of baby (FOB- [place]). Sw explained reason for sw involvement and completed psychosocial assessment. History obtained from: medical records, MOB and FOB Household composition: MOB states that currently residing in the family home is KESHAWN SYLVESTER, their 1.5 year old son Sai and now baby. Parents deny any concerns with housing. Patient's parent/guardian status:? Parents state that they have been together since 2020. Parents appear to have close relationship and are supportive of each other. No concerns at this time regarding domestic violence or intimate partner violence. ? Medical History: HIGINIO is 2, para 1- now 2 following labor and delivery of . HIGINIO received routine care during with [facility]. HIGINIO delivered baby on 07/18/23 via vaginal delivery at 39 weeks gestation. Baby boy, named Herbie, was born weighing 8lb 13oz and his apgars were 8 and 9 at one and five minutes of life, respectfully. HIGINIO states that she is breast feeding and it is going well, she has a pump for home. Baby will be followed by Dr. Schneider for pediatrics. ? Educational Status:? Both parents graduated from high school and have some college education but no degree. No concerns with reading, learning or comprehension. 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 HIGINIO is a stay at home mom. Supplies:?? Parents have obtained all necessary baby supplies, including: car seat, safe sleep space, clothes, diapers and wipes. Childcare/Caregiver(s):? MOB is the primary caregiver to baby along with KESHAWN when he is not at work. Transportation:?? Both parents have their drivers license and reliable means of transportation, no barriers at this time. Programs/Agencies Involved: ???Parents are not connected to any financially supportive resources within the community. Parents deny linkage to counseling supports. Children Services/Legal Issues:??? No history of involvement, no issues or concerns warranting referral at this time. Behavioral Health Issues: ??Mental Health History:?KESHAWN denies mental health diagnoses. HIGINIO states that she has not been diagnosed with anxiety or depression, but does believe that she struggled with some depression following the of her first baby. MOB and FOB state that during that time MOB was more sedentary than normal and did not want to go and visit with family members. MOB states that during that time her mom was also struggling with a cancer diagnosis and treatments. MOB states that she is hopeful that this time things are settled more in their lives and she will not experience any blues or symptoms. MOB states that she feels really good now, is not anxious or depressed. ?? Substance Use History:?MOB denies substance use prior to and during . ? Family History:?No family history of addiction or substance use disorders, no significant mental health diagnoses such as bipolar or schizophrenia. ? Drug Screens: ??No drug screens observed in chart review. Family/Social Stressors:? parents deny any issues or stressors at this time. Support Systems: MOB states that both sets of grandparents are extremely supportive, along with siblings that each parent has. Depression/Shaken Baby/Safe Sleeping:? Sw provided education and literature on signs and symptoms of baby blues and depression/ anxiety. Sw encouraged parents to have open communication with each other regarding how FOB can be supportive and helpful if MOB were to experience any symptoms. Parents expressed understanding. Sw educated parents on shaken baby prevention and ABCs of safe sleep. Parents expressed understanding. ASSESSMENT:?MOB and baby admitted following labor and delivery of . MOB and FOB open and talkative to sw during assessment. MOB talkative and receptive to sw involvement and support. FOB openly states that he is not sure if he would know how to recognize symptoms if MOB were struggling with her mental health during period. Parents receptive to support and resources provided. PLAN:? MOB and baby to be discharged when medically ready. ?No other services requested or indicated. Yosi Bernal, LEGAL MEDIATOR, COATINGS INSPECTOR
[2023-07-19 17:00] VITALS: BP 106/65; PULSE 86; RESP 16; O2SAT 97
== END 2023-07-19 19:00 | disposition home or self-care (01) | DRG 807 ==
PROVIDERS: Admitting Provider Advanced Practice Midwife; PCP Family Medicine; Referring Provider Advanced Practice Midwife; Visit Provider Advanced Practice Midwife
DX: O70.1 Second degree perineal laceration during delivery (principal); Z37.0 Single live birth; Z3A.39 39 weeks gestation of pregnancy; Z86.59 Personal history of other mental and behavioral disorders; Z87.59 Personal history of other complications of pregnancy, childbirth and the puerperium
CPT/HCPCS: 59025; 59050; 85025; 86780; 99221; J7120; G0378